=== PATIENT | female | born 1970 | race American Indian/Alaskan Native ===

== ENCOUNTER 2016-09-14 15:23 | Emergency (ER) | payer MEDICAID ==
[2016-09-14 18:25] LABS: Basophils % (Auto) 0.5 % (0.0-1.8); Eosinophils % (Auto) 1.2 % (0.0-4.3); Hematocrit 41.1 % (30.3-42.9); Hemoglobin 13.1 gm/dl (10.1-14.3); Mean Corpuscular HGB Conc 32 % (30-34); Mean Corpuscular Hemoglobin 26 pg (28-32); Mean Corpuscular Volume 81 fl (79-97); Platelet Count 298 K/mm3 (140-440); Red Blood Count 5.06 M/mm3 (3.65-5.03); Red Cell Distribution Width 15.4 % (13.2-15.2); White Blood Count 12.1 K/mm3 (4.5-11.0)
[2016-09-14 18:46] LABS: Alanine Aminotransferase 7 units/L (7-56); Albumin 3.5 g/dL (3.9-5); Albumin/Globulin Ratio 1.3 %; Alkaline Phosphatase 58 units/L (35-129); Anion Gap 17 mmol/L; Bilirubin,Total 0.3 mg/dL (0.1-1.2); Blood Urea Nitrogen 10 mg/dL (7-17); Calcium 8.4 mg/dL (8.4-10.2); Carbon Dioxide 27 mmol/L (22-30); Chloride 98.4 mmol/L (98-107); Creatine Kinase 37 units/L (30-135); Glucose 123 mg/dL (65-100); Potassium 4.2 mmol/L (3.6-5.0); Sodium 138 mmol/L (137-145); Total Protein 6.1 g/dL (6.3-8.2)
[2016-09-14 19:30] VITALS: BP 117/80
--- NOTE | 2016-09-14 19:30 | Emergency Department Report ---
Chief Complaint: Dizziness Stated Complaint: BLOOD PRESSURE Time Seen by Provider: 09/14/16 19:30 - HPI History of Present Illness: Patient here complaining of low blood pressure that started this afternoon, headache and feeling lightheaded. She is complaining of nausea without any vomiting. She said that she was unconscious and treated at [place] for similar incident a few weeks ago. Denies any fever or chills. She said her headache is 8 out of 10. Denies any neck pain or stiffness. Denies any abdominal or back pain. - ROS Review of Systems: All systems are negative unless stated in HPI above - Exam Vital Signs: Vital Signs 09/14/16 16:54 Temperature 97.5 F L Pulse Rate 62 Respiratory 18 Rate Blood Pressure 89/57 O2 Sat by Pulse 100 Oximetry Vital Signs 09/14/16 09/14/16 16:54 19:29 Temperature 97.5 F L Pulse Rate 62 Pulse Rate [ 70 Lying] Pulse Rate [ 65 Sitting] Pulse Rate [ 72 Standing] Respiratory 18 Rate Blood Pressure 89/57 Blood Pressure 117/80 [Lying] Blood Pressure 113/80 [Sitting] Blood Pressure 111/78 [Standing] O2 Sat by Pulse 100 Oximetry Physical Exam: General: This is a 46-year-old female well-nourished well-developed in no acute distress. Lungs: Clear to auscultate bilaterally, no rhonchi wheezes or rales. Normal work of breathing Cardiovascular: S1, S2. Regular rate and rhythm. Orthostatic vital signs stable. Abdomen: Nontender to palpate in all quadrants, Edinger rebound tenderness. Mini neurological: CSF 15, speech is clear and fluid. Normal gait. Patient is alert and oriented 3. MSE screening note: Focused history and physical exam performed. Due to findings the following was ordered:see [facility] ED Medical Decision Making - Lab Data Result diagrams: 09/14/16 17:50 09/14/16 17:50 - Medical Decision Making Medical decision making: Patient seen by provider in triage area. Appropriate protocol activated and patient to main ED to be seen by physician. ED Disposition for MSE Condition: Stable
[2016-09-14] MEDS ORDERED: NACL 0.9% 1000 ML 1,000 ML IV ONE (20:19)
[2016-09-14] MEDS ORDERED: MUCINEX ER PO ONE (20:29)
[2016-09-14] MEDS ORDERED: TYLENOL PO ONE (20:59)
--- NOTE | 2016-09-14 21:04 | Emergency Department Report ---
HPI - General Chief Complaint: Dizziness Time Seen by Provider: 09/14/16 19:30 - HPI HPI: The patient is a 46-year-old female who presents for evaluation of headache and dizziness. The patient reports dizziness since noon earlier today, 8 hours prior to my evaluation. She states that her dizziness/lightheadedness has been severe, exacerbated with standing and walking, improved with rest and lying down , and associated with a constant mild generalized aching in quality headache for the past one day. The patient denies fever, head injury, neck pain, neck stiffness, vision or hearing changes, smell or taste changes, paresthesias, facial drooping, slurred speech, seizure-like activity, urine or bowel incontinence or retention, or other focal neurological deficit. ED Past Medical Hx - Past Medical History Hx Hypertension: Yes Additional medical history: ovarian cyst. fibroids. enlarged uterus. abnormal EKG - Surgical History Hx Cholecystectomy: Yes - Social History Smoking Status: Never Smoker Substance Use Type: None - Medications Home Medications: Home Medications Medication Instructions Recorded Confirmed Last Taken Type Hydrochlorothiazide [HCTZ] 25 mg PO QDAY #90 tablet 05/30/16 Unknown Rx Atenolol [Tenormin] 50 mg PO DAILY 09/14/16 09/14/16 1 Day Ago History 50 Cetirizine HCl [ZyrTEC] 10 mg PO DAILY 09/14/16 09/14/16 1 Day Ago History 10 Lisinopril [Zestril TAB] 40 mg PO DAILY 09/14/16 09/14/16 1 Day Ago History 40 mg ED Review of Systems ROS: Stated complaint: BLOOD PRESSURE Other details as noted in HPI Constitutional: denies: fever; reports lightheadedness ENT: denies: throat or neck pain Respiratory: denies: cough, shortness of breath Cardiovascular: denies: chest pain Endocrine: denies unexplained weight loss or gain Gastrointestinal: denies: abdominal pain, nausea Genitourinary: denies: dysuria Musculoskeletal: denies: leg swelling Skin: denies: rash Neurological: reports headache Hematological/Lymphatic: denies: easy bleeding or easy bruising Psych: denies sadness or hopelessness Physical Exam - Physical Exam Vital Signs: Vital Signs 09/14/16 09/14/16 16:54 19:29 Temperature 97.5 F L Pulse Rate 62 Pulse Rate [ 70 Lying] Pulse Rate [ 65 Sitting] Pulse Rate [ 72 Standing] Respiratory 18 Rate Blood Pressure 89/57 Blood Pressure 117/80 [Lying] Blood Pressure 113/80 [Sitting] Blood Pressure 111/78 [Standing] O2 Sat by Pulse 100 Oximetry Physical Exam: General: well-nourished, well-developed, no acute distress Head: Normocephalic, atraumatic Eyes: normal sclera, EOMI, PERRLA male ENT: Mucous membranes are pale and dry Neck: No neck stiffness, no cervical adenopathy Respiratory: Breath sounds equal bilaterally, no wheezing, rales, or rhonchi Cardio: S1 and S2 present, no murmurs, rubs, gallops, capillary refill is delayed Abdomen: Normoactive bowel sounds, soft abdomen, no rigidity, no guarding or rebound tenderness Musc: No pitting edema Skin: No rash Neuro: Alert oriented 3, no facial drooping, normal speech, no pronator drift, no sensation or motor deficit in the arms or legs, reflexes 2+ and symmetric on DTR testing, no obvious gross neuro deficits Psych: Normal affect ED Course Vital Signs 09/14/16 09/14/16 16:54 19:29 Temperature 97.5 F L Pulse Rate 62 Pulse Rate [ 70 Lying] Pulse Rate [ 65 Sitting] Pulse Rate [ 72 Standing] Respiratory 18 Rate Blood Pressure 89/57 Blood Pressure 117/80 [Lying] Blood Pressure 113/80 [Sitting] Blood Pressure 111/78 [Standing] O2 Sat by Pulse 100 Oximetry ED Medical Decision Making - Lab Data Result diagrams: 09/14/16 17:50 09/14/16 17:50 - Medical Decision Making The patient was seen and examined by myself. The patient is placed on a marketing secretary and continuous pulse ox. On initial evaluation, the patient was found to be in no distress. Evaluation orders were placed. The patient is given 1 L normal saline fluid bolus for treatment of dehydration and hypotension , blood pressure 89/57. The patient is given a tablet of Tylenol for her headache. Lab results reveal elevated RBC, suggestive of hemoconcentration and exam findings of dehydration, and otherwise labs were grossly unremarkable including normal hemoglobin, glucose, electrolytes, renal function. The patient was reevaluated and reported that their symptoms were markedly improved, and her blood pressure is found to have normalized. The patient is stable for discharge with outpatient follow-up. The patient is given follow-up and return instructions. The patient expressed understanding and agreed with the plan. The patient is discharged in stable condition. Critical care attestation.: If time is entered above; I have spent that time in minutes in the direct care of this critically ill patient, excluding procedure time. ED Disposition Clinical Impression: Dehydration, Orthostatic lightheadedness Hypotension Qualifiers: Hypotension type: unspecified hypotension type Qualified Code(s): I95.9 - Hypotension, unspecified Acute nonintractable headache Qualifiers: Headache type: unspecified Qualified Code(s): R51 - Headache Disposition: DISCHARGED TO HOME OR SELFCARE Is pt being admited?: No Does the pt Need Aspirin: No Condition: Stable Instructions: Dehydration (ED), Lightheadedness (ED), Acute Headache (ED) Referrals: PRIMARY CARE, [Primary Care Provider] - 3-5 Days Time of Disposition: 21:02
== END 2016-09-14 23:16 | disposition home or self-care (01) ==
LOC: ED 15:23
DX: R51 Headache (principal); I95.9 Hypotension, unspecified; E86.0 Dehydration; E42 Marasmic kwashiorkor; I10 Essential (primary) hypertension; Z90.49 Acquired absence of other specified parts of digestive tract; Z88.6 Allergy status to analgesic agent; Z79.899 Other long term (current) drug therapy
CPT/HCPCS: 36415; 80053; 82550; 82553; 83880; 84439; 84443; 84484; 85025; 87040; 93005; 93010; 96360; 99284; J7030

== ENCOUNTER 2016-10-20 17:43 | Emergency (ER) | payer MEDICAID ==
--- NOTE | 2016-10-20 18:26 | Emergency Department Report ---
Chief Complaint: Abdominal Pain Stated Complaint: VAGINAL PAIN/SWEATS/BACK Time Seen by Provider: 10/20/16 18:21 - HPI History of Present Illness: pt c/o vaginal pain and itching and LUQ pain PT states she was recently dx with cervical cancer - ROS Review of Systems: - discharge - vomiting - Exam Physical Exam: pt looks well, non toxic no guarding of abd. abd obese gu exam not done in triage MSE screening note: Focused history and physical exam performed. Due to findings the following was ordered: labs ED Disposition for MSE Condition: Stable
[2016-10-20 18:28] VITALS: BP 114/76
[2016-10-20 19:21] LABS: Bilirubin,Urine NEG (Negative); Blood,Urine NEG (Negative); Ketones,Urine NEG (Negative); Leukocyte Esterase,Urine NEG (Negative); Mucus,Urine FEW /HPF; Nitrite,Urine NEG (Negative); Protein,Urine <15 mg/dL mg/dL (Negative); Urobilinogen,Urine < 2.0 mg/dL (<2.0); WBC,Urine < 1.0 /HPF (0.0-6.0)
--- NOTE | 2016-10-25 00:53 | ED Elopement Review ---
ED Pt Elopement review - Results review Lab results: Laboratory Tests 10/20/16 18:57 Urine Color Yellow Urine Turbidity Clear Urine pH 5.0 Ur Specific [place] 1.015 Urine Protein <15 mg/dl Urine Glucose (UA) Neg Urine Ketones Neg Urine Blood Neg Urine Nitrite Neg Ur Reducing Substances Not Reportable Urine Bilirubin Neg Urine Ictotest Not Reportable Urine Urobilinogen < 2.0 Ur Leukocyte Esterase Neg Urine WBC (Auto) < 1.0 Urine RBC (Auto) 1.0 U Epithel Cells (Auto) < 1.0 Urine Mucus Few Urine HCG, Qual Negative - Call Back decision Pt Call Back Decision: No action required
== END 2016-10-20 21:45 | disposition left against medical advice (07) ==
LOC: ED 17:43
DX: R10.2 Pelvic and perineal pain (principal); N89.8 Other specified noninflammatory disorders of vagina; R10.32 Left lower quadrant pain; Z53.21 Procedure and treatment not carried out due to patient leaving prior to being seen by health care provider
CPT/HCPCS: 81001; 81025

== ENCOUNTER 2016-11-25 16:47 | Emergency (ER) | payer SELFPAY ==
[2016-11-25 17:55] VITALS: BP 112/80
[2016-11-25 18:09] LABS: Basophils % (Auto) 1.1 % (0.0-1.8); Eosinophils % (Auto) 4.7 % (0.0-4.3); Hematocrit 44.2 % (30.3-42.9); Hemoglobin 13.9 gm/dl (10.1-14.3); Mean Corpuscular HGB Conc 32 % (30-34); Mean Corpuscular Volume 81 fl (79-97); Platelet Count 312 K/mm3 (140-440); Red Blood Count 5.46 M/mm3 (3.65-5.03); White Blood Count 11.5 K/mm3 (4.5-11.0)
[2016-11-25 18:10] LABS: Mean Corpuscular Hemoglobin 26 pg (28-32)
[2016-11-25 18:28] LABS: Alanine Aminotransferase 9 units/L (7-56); Albumin 3.1 g/dL (3.9-5); Albumin/Globulin Ratio 1.1 %; Alkaline Phosphatase 52 units/L (35-129); Anion Gap 12 mmol/L; BUN/Creatinine Ratio 11.11; Bilirubin,Total < 0.20 mg/dL (0.1-1.2); Blood Urea Nitrogen 10 mg/dL (7-17); Calcium 8.2 mg/dL (8.4-10.2); Carbon Dioxide 29 mmol/L (22-30); Chloride 99.6 mmol/L (98-107); Glucose 115 mg/dL (65-100); Lipase 47 units/L (13-60); Potassium 3.7 mmol/L (3.6-5.0); Sodium 137 mmol/L (137-145)
--- NOTE | 2016-11-26 19:30 | ED Elopement Review ---
ED Pt Elopement review - Results review Lab results: Laboratory Tests 11/25/16 11/25/16 17:58 17:58 WBC 11.5 H RBC 5.46 H Hgb 13.9 Hct 44.2 H MCV 81 MCH 26 L MCHC 32 RDW 16.0 H Plt Count 312 Lymph % (Auto) 32.2 [place] % (Auto) 7.9 H Eos % (Auto) 4.7 H Baso % (Auto) 1.1 Lymph # 3.7 Garrett # 0.9 H Eos # 0.5 H Baso # 0.1 Seg Neutrophils % 54.1 Seg Neutrophils # 6.2 Sodium 137 Potassium 3.7 Chloride 99.6 Carbon Dioxide 29 Anion Gap 12 BUN 10 Creatinine 0.9 Estimated GFR > 60 BUN/Creatinine Ratio 11.11 Glucose 115 H Calcium 8.2 L Total Bilirubin < 0.20 AST 11 ALT 9 Alkaline Phosphatase 52 Total Protein 6.0 L Albumin 3.1 L Albumin/Globulin Ratio 1.1 Lipase 47 - Call Back decision Pt Call Back Decision: No action required
== END 2016-11-25 20:42 | disposition left against medical advice (07) ==
LOC: ED 16:47
DX: R10.9 Unspecified abdominal pain (principal); R19.7 Diarrhea, unspecified; R11.0 Nausea; E03.9 Hypothyroidism, unspecified; Z88.5 Allergy status to narcotic agent; Z53.21 Procedure and treatment not carried out due to patient leaving prior to being seen by health care provider
CPT/HCPCS: 36415; 80053; 83690; 85025

== ENCOUNTER 2017-05-09 16:37 | Emergency (ER) | payer SELFPAY ==
[2017-05-09 17:59] VITALS: BP 156/92
[2017-05-09 18:40] LABS: Basophils % (Auto) 0.7 % (0.0-1.8); Hematocrit 37.4 % (30.3-42.9); Hemoglobin 11.7 gm/dl (10.1-14.3); Mean Corpuscular HGB Conc 31 % (30-34); Mean Corpuscular Volume 78 fl (79-97); Platelet Count 368 K/mm3 (140-440); Red Blood Count 4.77 M/mm3 (3.65-5.03); Red Cell Distribution Width 15.7 % (13.2-15.2); White Blood Count 9.8 K/mm3 (4.5-11.0)
[2017-05-09 18:46] LABS: Mean Corpuscular Hemoglobin 25 pg (28-32)
[2017-05-09 18:58] LABS: Anion Gap 14 mmol/L; BUN/Creatinine Ratio 17; Blood Urea Nitrogen 12 mg/dL (7-17); Calcium 9.3 mg/dL (8.4-10.2); Carbon Dioxide 30 mmol/L (22-30); Chloride 100.7 mmol/L (98-107); Glucose 96 mg/dL (65-100); Sodium 141 mmol/L (137-145)
--- NOTE | 2017-05-09 19:05 | Cat Scan Report ---
FINAL REPORT EXAM: CT HEAD/BRAIN WO CON HISTORY: fall TECHNIQUE: Noncontrast serial axial images from skull base to vertex PRIORS: CT scan of the head from 05/30/2016 FINDINGS: There is no mass effect or midline shift. There are no abnormal intra or extra-axial fluid collections. Cortical sulci and lateral ventricles are within normal limits for size and configuration. Basilar cisterns are patent. No acute intracranial hemorrhage is identified. Atherosclerotic calcifications are noted. Mastoid air cells are well aerated. There is mucosal thickening in the frontal sinus, ethmoidal air cells, sphenoid sinus and left maxillary sinus, as in the prior study. No acute osseous abnormality is identified. IMPRESSION: 1. No acute intracranial hemorrhage is identified. 2. Paranasal sinus disease is noted.
== END 2017-05-10 03:44 | disposition left against medical advice (07) ==
LOC: ED 16:37
DX: R51 Headache (principal); Z53.21 Procedure and treatment not carried out due to patient leaving prior to being seen by health care provider
CPT/HCPCS: 36415; 70450; 80048; 84484; 85025

== ENCOUNTER 2017-10-20 21:07 | Emergency (ER) | payer SELFPAY ==
[2017-10-20 21:55] LABS: Hematocrit 39.3 % (30.3-42.9); Hemoglobin 12.4 gm/dl (10.1-14.3); Mean Corpuscular HGB Conc 32 % (30-34); Mean Corpuscular Volume 79 fl (79-97); Red Blood Count 4.94 M/mm3 (3.65-5.03); Red Cell Distribution Width 17.1 % (13.2-15.2)
[2017-10-20 21:56] LABS: Mean Corpuscular Hemoglobin 25 pg (28-32); Platelet Count 292 K/mm3 (140-440)
[2017-10-20 22:05] LABS: Bacteria,Urine 1+ /HPF (Negative); Bilirubin,Urine NEG (Negative); Blood,Urine LG (Negative); Color,Urine Yellow (Yellow); Hyaline Casts,Urine 3 /LPF; Mucus,Urine 1+ /HPF; Urobilinogen,Urine < 2.0 mg/dL (<2.0)
[2017-10-20 22:15] LABS: RBC,Urine > 182.0 /HPF (0.0-6.0)
[2017-10-20 22:21] LABS: Basophils % (Manual) 0 % (0.0-1.8); Total Cells Counted 100
[2017-10-20 22:23] LABS: Anisocytosis 1+; Platelet Estimate Consistent w Auto; Poikilocytosis 1+
[2017-10-20 22:48] LABS: Albumin 3.8 g/dL (3.9-5); BUN/Creatinine Ratio 11; Blood Urea Nitrogen 8 mg/dL (7-17); Calcium 8.5 mg/dL (8.4-10.2); Hemolysis Index 166; Lipase 32 units/L (13-60)
[2017-10-20 22:50] LABS: Alanine Aminotransferase 9 units/L (7-56)
[2017-10-20 23:40] VITALS: BP 179/101
[2017-10-20] MEDS ORDERED: TORADOL IV ONE (23:43)
[2017-10-20] MEDS ORDERED: NACL 0.9% 1000 ML 1,000 ML IV ONE (23:43)
[2017-10-20] MEDS ORDERED: ZOFRAN IV ONE (23:43)
[2017-10-21] MEDS ORDERED: NACL ONE (00:51)
--- NOTE | 2017-10-21 02:06 | Cat Scan Report ---
FINAL REPORT PROCEDURE: CT ABDOMEN PELVIS W CON TECHNIQUE: Computerized axial tomography of the abdomen and pelvis was performed after the IV injection of iodinated nonionic contrast. HISTORY: LLQ pain, hx cerv CA excess bleeding COMPARISON: 10/25/2013 FINDINGS: Visualized lower thorax: No significant abnormality. Liver: Normal size and attenuation. Spleen: Normal size and attenuation. Gallbladder and biliary system: The gallbladder is absent. There is slight dilatation of the central biliary ductal system. Pancreas: Normal. Adrenals: Normal. Kidneys: Normal. GI tract: No obstruction. No ileus or enteritis. The cecum, appendix and colon are normal. Lymph nodes and mesentery: Normal. Vasculature: Normal. Bladder: Normal. Reproductive organs: There is a cyst on left ovary this measures approximately 2 centimeters.. Peritoneum: No free fluid. Musculoskeletal structures: No significant abnormality. Other: None. IMPRESSION: There is no evidence of intestinal or urinary tract obstruction. No ileus or enteritis. The appendix is normal. Previous cholecystectomy
--- NOTE | 2017-10-21 02:26 | Emergency Department Report ---
ED Abdominal Pain HPI - General Chief Complaint: Abdominal Pain Stated Complaint: ABD PAIN; VAG D/C WITH ODOR Time Seen by Provider: 10/20/17 23:28 Source: patient Mode of arrival: Ambulatory Limitations: No Limitations - History of Present Illness Initial Comments: Patient is a 47-year-old female who is presenting with lower abdominal pain as well as pain in the left lower quadrant. Patient states that she is on her menstrual cycle for the past several days. This is the second time she's had bleeding within the last month. Patient was diagnosed with cervical cancer in August 2016 was told to follow-up as she is not due to financial constraints. The patient has had continued chronic pelvic pain since this diagnosis was given however the pain is worse when she's bleeding. Patient also has some nausea as very mild diarrhea as well. Patient has some shooting pains that shoot into her rectum. Patient denies any fevers chills cough chest pain at this time. Severity scale (0 -10): 5 - Related Data Home Medications Medication Instructions Recorded Confirmed Last Taken Atenolol [Tenormin] 50 mg PO DAILY 09/14/16 09/14/16 1 Day Ago ~09/13/16 50 Cetirizine HCl [ZyrTEC] 10 mg PO DAILY 09/14/16 09/14/16 1 Day Ago ~09/13/16 10 Lisinopril [Zestril TAB] 40 mg PO DAILY 09/14/16 09/14/16 1 Day Ago ~09/13/16 40 mg Previous Rx's Medication Instructions Recorded Last Taken Type Hydrochlorothiazide [HCTZ] 25 mg PO QDAY #90 tablet 05/30/16 1 Day Ago Rx ~09/13/16 25 Ibuprofen [Motrin] 800 mg PO Q8HR PRN #20 tablet 10/21/17 Unknown Rx Ondansetron [Zofran Odt] 4 mg PO Q8HR PRN #10 tab.rapdis 10/21/17 Unknown Rx Allergies Allergy/AdvReac Type Severity Reaction Status Date / Time codeine Allergy Rash / Verified 10/20/16 18:22 VOMITING ED Review of Systems ROS: Stated complaint: ABD PAIN; VAG D/C WITH ODOR Other details as noted in HPI Comment: All other systems reviewed and negative ED Past Medical Hx - Past Medical History Hx Hypertension: Yes Additional medical history: ovarian cyst, hypothyroidism, cx Ca, chronic sinusitis. fibroids. enlarged uterus. abnormal EKG - Surgical History Hx Cholecystectomy: Yes - Social History Smoking Status: Never Smoker Substance Use Type: None - Medications Home Medications: Home Medications Medication Instructions Recorded Confirmed Last Taken Type Hydrochlorothiazide [HCTZ] 25 mg PO QDAY #90 tablet 05/30/16 09/14/16 1 Day Ago Rx ~09/13/16 25 Atenolol [Tenormin] 50 mg PO DAILY 09/14/16 09/14/16 1 Day Ago History ~09/13/16 50 Cetirizine HCl [ZyrTEC] 10 mg PO DAILY 09/14/16 09/14/16 1 Day Ago History ~09/13/16 10 Lisinopril [Zestril TAB] 40 mg PO DAILY 09/14/16 09/14/16 1 Day Ago History ~09/13/16 40 mg Ibuprofen [Motrin] 800 mg PO Q8HR PRN #20 tablet 10/21/17 Unknown Rx Ondansetron [Zofran Odt] 4 mg PO Q8HR PRN #10 tab.rapdis 10/21/17 Unknown Rx ED Physical Exam - General Limitations: No Limitations General appearance: alert, in no apparent distress - Head Head exam: Present: atraumatic, normocephalic - Eye Eye exam: Present: normal appearance - ENT ENT exam: Present: mucous membranes moist - Neck Neck exam: Present: normal inspection - Respiratory Respiratory exam: Present: normal lung sounds bilaterally. Absent: respiratory distress, wheezes, rales, rhonchi - Cardiovascular Cardiovascular Exam: Present: regular rate, normal rhythm. Absent: systolic murmur, diastolic murmur, rubs, gallop - GI/Abdominal GI/Abdominal exam: Present: soft, tenderness (mild tenderness in the left lower quadrant and suprapubic region), normal bowel sounds. Absent: distended, guarding, rebound, rigid - Extremities Exam Extremities exam: Present: normal inspection - Back Exam Back exam: Present: normal inspection - Neurological Exam Neurological exam: Present: alert, oriented X3 - Psychiatric Psychiatric exam: Present: normal affect, normal mood - Skin Skin exam: Present: warm, dry, intact, normal color. Absent: rash ED Course Vital Signs 10/20/17 10/20/17 10/20/17 21:12 23:11 23:15 Temperature 98.6 F Pulse Rate 102 H 88 83 Respiratory 18 19 19 Rate Blood Pressure 161/88 179/101 O2 Sat by Pulse 100 99 99 Oximetry 10/20/17 23:31 Temperature 98.2 F Pulse Rate 85 Respiratory 18 Rate Blood Pressure 179/101 O2 Sat by Pulse 100 Oximetry ED Medical Decision Making - Lab Data Result diagrams: 10/20/17 21:36 10/20/17 21:36 Lab Results 10/20/17 10/20/17 10/20/17 Range/Units 21:36 21:36 Unknown WBC 12.7 H (4.5-11.0) K/mm3 RBC 4.94 (3.65-5.03) M/mm3 Hgb 12.4 (10.1-14.3) gm/dl Hct 39.3 (30.3-42.9) % MCV 79 (79-97) fl MCH 25 L (28-32) pg MCHC 32 (30-34) % RDW 17.1 H (13.2-15.2) % Plt Count 292 (140-440) K/mm3 Lymph # Director Dermatology Add Manual Diff Complete Total Counted 100 Seg Neuts % (Manual) 51.0 (40.0-70.0) % Band Neutrophils % 0 % Lymphocytes % (Manual) 37.0 H (13.4-35.0) % Reactive Lymphs % (Man) 0 % Monocytes % (Manual) 6.0 (0.0-7.3) % Eosinophils % (Manual) 6.0 H (0.0-4.3) % Basophils % (Manual) 0 (0.0-1.8) % Metamyelocytes % 0 % Myelocytes % 0 % Promyelocytes % 0 % Blast Cells % 0 % Nucleated RBC % Not Reportable Seg Neutrophils # Man 6.5 (1.8-7.7) K/mm3 Band Neutrophils # 0.0 K/mm3 Lymphocytes # (Manual) 4.7 (1.2-5.4) K/mm3 Abs React Lymphs (Man) 0.0 K/mm3 Monocytes # (Manual) 0.8 (0.0-0.8) K/mm3 Eosinophils # (Manual) 0.8 H (0.0-0.4) K/mm3 Basophils # (Manual) 0.0 (0.0-0.1) K/mm3 Metamyelocytes # 0.0 K/mm3 Myelocytes # 0.0 K/mm3 Promyelocytes # 0.0 K/mm3 Blast Cells # 0.0 K/mm3 WBC Morphology Not Reportable Hypersegmented Neuts Not Reportable Hyposegmented Neuts Not Reportable Hypogranular Neuts Not Reportable Smudge Cells Not Reportable Toxic Granulation Not Reportable Toxic Vacuolation Not Reportable Dohle Bodies Not Reportable Pelger-Huet Anomaly Not Reportable Caden Rods Not Reportable Platelet Estimate Consistent w auto Clumped Platelets Not Reportable Plt Clumps, EDTA Not Reportable Large Platelets Not Reportable Giant Platelets Not Reportable Platelet Satelliting Not Reportable Plt Morphology Comment Not Reportable RBC Morphology Not Reportable Dimorphic RBCs Not Reportable Polychromasia Not Reportable Hypochromasia Not Reportable Poikilocytosis 1+ Anisocytosis 1+ Microcytosis Not Reportable Macrocytosis Not Reportable Spherocytes Not Reportable Pappenheimer Bodies Not Reportable Sickle Cells Not Reportable Target Cells Not Reportable Tear Drop Cells Not Reportable Ovalocytes Not Reportable Helmet Cells Not Reportable [place] Bodies Not Reportable [place] Rings Not Reportable [place] Cells Not Reportable Bite Cells Not Reportable Crenated Cell Not Reportable Elliptocytes Few Acanthocytes (Spur) Not Reportable Rouleaux Not Reportable Hemoglobin C Crystals Not Reportable Schistocytes Not Reportable Malaria parasites Not Reportable [place] Bodies Not Reportable Hem Pathologist Commnt No Sodium 134 L (137-145) mmol/L Potassium 4.5 (3.6-5.0) mmol/L Chloride 100.2 (98-107) mmol/L Carbon Dioxide 19 L (22-30) mmol/L Anion Gap 19 mmol/L BUN 8 (7-17) mg/dL Creatinine 0.7 (0.7-1.2) mg/dL Estimated GFR > 60 ml/min BUN/Creatinine Ratio 11 % Glucose 112 H (65-100) mg/dL Calcium 8.5 (8.4-10.2) mg/dL Total Bilirubin 0.20 (0.1-1.2) mg/dL AST 19 (5-40) units/L ALT 9 (7-56) units/L Alkaline Phosphatase 81 (35-129) units/L Total Protein 7.7 (6.3-8.2) g/dL Albumin 3.8 L (3.9-5) g/dL Albumin/Globulin Ratio 1.0 % Lipase 32 (13-60) units/L Urine Color Yellow (Yellow) Urine Turbidity Clear (Clear) Urine pH 5.0 (5.0-7.0) Ur Specific [place] 1.025 (1.003-1.030) Urine Protein 30 mg/dl (Negative) mg/dL Urine Glucose (UA) Neg (Negative) mg/dL Urine Ketones Neg (Negative) mg/dL Urine Blood Lg (Negative) Urine Nitrite Neg (Negative) Urine Bilirubin Neg (Negative) Urine Urobilinogen < 2.0 (<2.0) mg/dL Ur Leukocyte Esterase Neg (Negative) Urine WBC (Auto) 9.0 H (0.0-6.0) /HPF Urine RBC (Auto) > 182.0 (0.0-6.0) /HPF Urine Bacteria (Auto) 1+ (Negative) /HPF Hyaline Casts 3 /LPF Urine Mucus 1+ /HPF - Radiology Data Radiology results: report reviewed CT abdomen and pelvis shows no acute process - Medical Decision Making Patient is a 47-year-old asthmatic female who is presenting with lower abdominal pain and heavy vaginal bleeding. Patient had no obvious abnormality seen on CT. Patient will be referred to gynecology for further evaluation of her cervical cancer and abnormal vaginal bleeding. Patient will be given pain meds. Patient also most likely has a viral gastroenteritis and will be started on Z Contreras as well. Patient was medicat and is feeling improved. Her pain is better and patient feels she is fine to go home as well. Ed Critical care attestation.: If time is entered above; I have spent that time in minutes in the direct care of this critically ill patient, excluding procedure time. ED Disposition Clinical Impression: Dysmenorrhea, Viral gastroenteritis Disposition: DC-01 TO HOME OR SELFCARE Is pt being admited?: No Does the pt Need Aspirin: No Condition: Stable Instructions: Abdominal Pain (ED), Dysmenorrhea (ED) Referrals: ROSANNE WELLINGTON MD [Staff Physician] - 3-5 Days
== END 2017-10-21 02:38 | disposition home or self-care (01) ==
LOC: ED 21:07
DX: N94.6 Dysmenorrhea, unspecified (principal); A08.4 Viral intestinal infection, unspecified; I10 Essential (primary) hypertension; Z85.43 Personal history of malignant neoplasm of ovary; Z90.49 Acquired absence of other specified parts of digestive tract
CPT/HCPCS: 36415; 74177; 80053; 81001; 83690; 85007; 85025; 96361; 96374; 96375; 99284; J1885; J2405; J7030; Q9967

== ENCOUNTER 2017-11-16 21:46 | Emergency (ER) | payer SELFPAY ==
[2017-11-16] MEDS ORDERED: ASPIRIN PO ONE (22:09)
[2017-11-16 22:20] LABS: Basophils # (Auto) 0.1 K/mm3 (0.0-0.1); Eosinophils # (Auto) 0.5 K/mm3 (0.0-0.4); Eosinophils % (Auto) 4.6 % (0.0-4.3); Monocytes % (Auto) 8.6 % (0.0-7.3)
[2017-11-16 22:23] LABS: Hematocrit 38.2 % (30.3-42.9); Hemoglobin 12.1 gm/dl (10.1-14.3); Mean Corpuscular HGB Conc 32 % (30-34); Mean Corpuscular Hemoglobin 25 pg (28-32); Mean Corpuscular Volume 80 fl (79-97); Platelet Count 336 K/mm3 (140-440); Red Cell Distribution Width 16.6 % (13.2-15.2)
[2017-11-16 22:24] LABS: Basophils % (Auto) 0.6 % (0.0-1.8); Lymphocytes # (Auto) 4.3 K/mm3 (1.2-5.4); Lymphocytes % (Auto) 37.5 % (13.4-35.0); Mean Platelet Volume 7.8 fl (6-12)
[2017-11-16 22:31] LABS: BUN/Creatinine Ratio 14; Blood Urea Nitrogen 10 mg/dL (7-17); Calcium 8.4 mg/dL (8.4-10.2); Hemolysis Index 0
[2017-11-16 23:00] LABS: Amorphous Crystals,Urine 1+; Bilirubin,Urine NEG (Negative); Blood,Urine LG (Negative); Color,Urine Yellow (Yellow); Mucus,Urine FEW /HPF; Protein,Urine <15 mg/dL mg/dL (Negative); RBC,Urine > 182.0 /HPF (0.0-6.0); Urobilinogen,Urine < 2.0 mg/dL (<2.0)
[2017-11-16 23:01] LABS: WBC,Urine < 1.0 /HPF (0.0-6.0)
[2017-11-17] MEDS ORDERED: ZOFRAN ODT PO ONE (00:12)
[2017-11-17] MEDS ORDERED: MOTRIN PO ONE (00:12)
[2017-11-17] MEDS ORDERED: PERCOCET 5/325 PO ONE (00:12)
--- NOTE | 2017-11-17 00:31 | Emergency Department Report ---
ED General Adult HPI - General Chief complaint: Chest Pain Stated complaint: HEADACHE, CHEST PAIN Time Seen by Provider: 11/16/17 23:56 Source: patient Mode of arrival: Ambulatory Limitations: No Limitations - History of Present Illness Initial comments: Ms. Noble is a 47-year-old female with history of hypertension and uterine fibroids. She has had 3 days of frontal throbbing headache. She has had several previous ED visits for headache. She's also had 3 days of central achy Pain in the chest. Moderately severe. [id number] pain medication did not improve the pain. She denies shortness of breath. She denies numbness. Denies tingling. She denies blurry vision. No previous history of heart disease. Father did have a history of heart attack in his 60s. Her [facility] physician attempted to refer her for further testing. However no immediate appointments were available. She is unclear whether she has history of leg clot or lung clot. Severity scale (0 -10): 0 - Related Data Home Medications Medication Instructions Recorded Confirmed Last Taken Atenolol [Tenormin] 50 mg PO DAILY 09/14/16 09/14/16 1 Day Ago ~09/13/16 50 Cetirizine HCl [ZyrTEC] 10 mg PO DAILY 09/14/16 09/14/16 1 Day Ago ~09/13/16 10 Lisinopril [Zestril TAB] 40 mg PO DAILY 09/14/16 09/14/16 1 Day Ago ~09/13/16 40 mg Previous Rx's Medication Instructions Recorded Last Taken Type Hydrochlorothiazide [HCTZ] 25 mg PO QDAY #90 tablet 05/30/16 1 Day Ago Rx ~09/13/16 25 Ibuprofen [Motrin] 800 mg PO Q8HR PRN #20 tablet 10/21/17 Unknown Rx Ondansetron [Zofran Odt] 4 mg PO Q8HR PRN #10 tab.rapdis 10/21/17 Unknown Rx HYDROcodone/APAP 5-325 [[place] 1 each PO Q4HR PRN #10 tablet 11/17/17 Unknown Rx 5/325] Allergies Allergy/AdvReac Type Severity Reaction Status Date / Time codeine Allergy Rash / Verified 10/20/16 18:22 VOMITING ED Review of Systems ROS: Stated complaint: HEADACHE, CHEST PAIN Other details as noted in HPI Comment: All other systems reviewed and negative Constitutional: denies: fever, malaise Respiratory: denies: cough Cardiovascular: chest pain ED Past Medical Hx - Past Medical History Previous Medical History?: Yes Hx Hypertension: Yes Additional medical history: ovarian cyst, hypothyroidism, cx Ca, chronic sinusitis. fibroids. enlarged uterus. abnormal EKG - Surgical History Past Surgical History?: Yes Hx Cholecystectomy: Yes - Social History Smoking Status: Never Smoker Substance Use Type: None - Medications Home Medications: Home Medications Medication Instructions Recorded Confirmed Last Taken Type Hydrochlorothiazide [HCTZ] 25 mg PO QDAY #90 tablet 05/30/16 09/14/16 1 Day Ago Rx ~09/13/16 25 Atenolol [Tenormin] 50 mg PO DAILY 09/14/16 09/14/16 1 Day Ago History ~09/13/16 50 Cetirizine HCl [ZyrTEC] 10 mg PO DAILY 09/14/16 09/14/16 1 Day Ago History ~09/13/16 10 Lisinopril [Zestril TAB] 40 mg PO DAILY 09/14/16 09/14/16 1 Day Ago History ~09/13/16 40 mg Ibuprofen [Motrin] 800 mg PO Q8HR PRN #20 tablet 10/21/17 Unknown Rx Ondansetron [Zofran Odt] 4 mg PO Q8HR PRN #10 tab.rapdis 10/21/17 Unknown Rx HYDROcodone/APAP 5-325 [[place] 1 each PO Q4HR PRN #10 tablet 11/17/17 Unknown Rx 5/325] ED Physical Exam - General Limitations: No Limitations General appearance: alert, in no apparent distress - Head Head exam: Present: atraumatic, normocephalic - Eye Eye exam: Present: normal appearance - ENT ENT exam: Present: mucous membranes moist - Neck Neck exam: Present: normal inspection - Respiratory Respiratory exam: Present: normal lung sounds bilaterally. Absent: respiratory distress, wheezes, rales, rhonchi - Cardiovascular Cardiovascular Exam: Present: regular rate, normal rhythm. Absent: systolic murmur, diastolic murmur, rubs, gallop - GI/Abdominal GI/Abdominal exam: Present: soft, normal bowel sounds - Extremities Exam Extremities exam: Present: normal inspection - Back Exam Back exam: Present: normal inspection - Neurological Exam Neurological exam: Present: alert, oriented X3, CN II-XII intact, normal gait - Psychiatric Psychiatric exam: Present: normal affect, normal mood - Skin Skin exam: Present: warm, dry, intact, normal color. Absent: rash ED Course Vital Signs 11/16/17 11/17/17 11/17/17 22:03 00:10 00:11 Temperature 98.3 F 98.9 F Pulse Rate 101 H 85 Respiratory 16 18 Rate Blood Pressure 171/102 Blood Pressure 159/96 [Right] O2 Sat by Pulse 100 100 100 Oximetry 11/17/17 00:24 Temperature Pulse Rate Respiratory 18 Rate Blood Pressure Blood Pressure [Right] O2 Sat by Pulse Oximetry ED Medical Decision Making - Lab Data Result diagrams: 11/16/17 22:12 11/16/17 22:12 Laboratory Results - last 24 hr 11/16/17 11/16/17 11/16/17 22:12 22:12 22:12 WBC 11.4 H RBC 4.80 Hgb 12.1 Hct 38.2 MCV 80 MCH 25 L MCHC 32 RDW 16.6 H Plt Count 336 Lymph % (Auto) 37.5 H [place] % (Auto) 8.6 H Eos % (Auto) 4.6 H Baso % (Auto) 0.6 Lymph # 4.3 [place] # 1.0 H Eos # 0.5 H Baso # 0.1 Seg Neutrophils % 48.7 Seg Neutrophils # 5.5 Sodium 135 L Potassium 3.7 Chloride 97.5 L Carbon Dioxide 26 Anion Gap 15 BUN 10 Creatinine 0.7 Estimated GFR > 60 BUN/Creatinine Ratio 14 Glucose 113 H Calcium 8.4 Troponin T < 0.010 HCG, Qual Negative Urine Color Urine Turbidity Urine pH Ur Specific [place] Urine Protein Urine Glucose (UA) Urine Ketones Urine Blood Urine Nitrite Urine Bilirubin Urine Urobilinogen Ur Leukocyte Esterase Urine WBC (Auto) Urine RBC (Auto) U Epithel Cells (Auto) Amorphous Crystals Urine Mucus 11/16/17 22:25 WBC RBC Hgb Hct MCV MCH MCHC RDW Plt Count Lymph % (Auto) [place] % (Auto) Eos % (Auto) Baso % (Auto) Lymph # [place] # Eos # Baso # Seg Neutrophils % Seg Neutrophils # Sodium Potassium Chloride Carbon Dioxide Anion Gap BUN Creatinine Estimated GFR BUN/Creatinine Ratio Glucose Calcium Troponin T HCG, Qual Urine Color Yellow Urine Turbidity Turbid Urine pH 7.0 Ur Specific [place] 1.017 Urine Protein <15 mg/dl Urine Glucose (UA) Neg Urine Ketones Neg Urine Blood Lg Urine Nitrite Neg Urine Bilirubin Neg Urine Urobilinogen < 2.0 Ur Leukocyte Esterase Neg Urine WBC (Auto) < 1.0 Urine RBC (Auto) > 182.0 U Epithel Cells (Auto) < 1.0 Amorphous Crystals 1+ Urine Mucus Few Vital Signs - 24 hr 11/16/17 11/17/17 11/17/17 22:03 00:10 00:11 Temperature 98.3 F 98.9 F Pulse Rate 101 H 85 Respiratory 16 18 Rate Blood Pressure 171/102 Blood Pressure 159/96 [Right] O2 Sat by Pulse 100 100 100 Oximetry Laboratory Results - last 24 hr 11/16/17 11/16/17 11/16/17 22:12 22:12 22:12 WBC 11.4 H RBC 4.80 Hgb 12.1 Hct 38.2 MCV 80 MCH 25 L MCHC 32 RDW 16.6 H Plt Count 336 Lymph % (Auto) 37.5 H [place] % (Auto) 8.6 H Eos % (Auto) 4.6 H Baso % (Auto) 0.6 Lymph # 4.3 [place] # 1.0 H Eos # 0.5 H Baso # 0.1 Seg Neutrophils % 48.7 Seg Neutrophils # 5.5 D-Dimer Sodium 135 L Potassium 3.7 Chloride 97.5 L Carbon Dioxide 26 Anion Gap 15 BUN 10 Creatinine 0.7 Estimated GFR > 60 BUN/Creatinine Ratio 14 Glucose 113 H Calcium 8.4 Troponin T < 0.010 HCG, Qual Negative Urine Color Urine Turbidity Urine pH Ur Specific [place] Urine Protein Urine Glucose (UA) Urine Ketones Urine Blood Urine Nitrite Urine Bilirubin Urine Urobilinogen Ur Leukocyte Esterase Urine WBC (Auto) Urine RBC (Auto) U Epithel Cells (Auto) Amorphous Crystals Urine Mucus 11/16/17 11/17/17 11/17/17 22:25 00:21 00:21 WBC RBC Hgb Hct MCV MCH MCHC RDW Plt Count Lymph % (Auto) [place] % (Auto) Eos % (Auto) Baso % (Auto) Lymph # [place] # Eos # Baso # Seg Neutrophils % Seg Neutrophils # D-Dimer 253.64 H Sodium Potassium Chloride Carbon Dioxide Anion Gap BUN Creatinine Estimated GFR BUN/Creatinine Ratio Glucose Calcium Troponin T < 0.010 HCG, Qual Urine Color Yellow Urine Turbidity Turbid Urine pH 7.0 Ur Specific [place] 1.017 Urine Protein <15 mg/dl Urine Glucose (UA) Neg Urine Ketones Neg Urine Blood Lg Urine Nitrite Neg Urine Bilirubin Neg Urine Urobilinogen < 2.0 Ur Leukocyte Esterase Neg Urine WBC (Auto) < 1.0 Urine RBC (Auto) > 182.0 U Epithel Cells (Auto) < 1.0 Amorphous Crystals 1+ Urine Mucus Few - EKG Data 11/17/17 00:15 EKG obtained 59 Normal sinus rhythm rate of 95 beats a minute normal axis normal intervals no ST -T signs of ischemia positive LVH no signs of pericarditis - Medical Decision Making Ms. Noble presents with headache and chest pain. chest pain atypical for acs. Chest pain does not appear to be related to PNA or PE with equivocal level of d-dimer Dx: tension headache, chest pain rx: norco Critical care attestation.: If time is entered above; I have spent that time in minutes in the direct care of this critically ill patient, excluding procedure time. ED Disposition Clinical Impression: Chest pain, Tension headache Disposition: - TO HOME OR SELFCARE Is pt being admited?: No Does the pt Need Aspirin: No Condition: Stable Instructions: Chest Pain (ED), Tension Headache (ED) Prescriptions: HYDROcodone/APAP 5-325 [[place] 5/325] 1 each PO Q4HR PRN #10 tablet PRN Reason: Pain Referrals: PRIMARY CARE, [Primary Care Provider] - 3-5 Days Time of Disposition: 01:52
[2017-11-17 02:02] VITALS: BP 156/87
== END 2017-11-17 02:03 | disposition home or self-care (01) ==
LOC: ED 21:46
DX: G44.209 Tension-type headache, unspecified, not intractable (principal); R07.9 Chest pain, unspecified; I10 Essential (primary) hypertension; Z90.49 Acquired absence of other specified parts of digestive tract; Z88.6 Allergy status to analgesic agent
CPT/HCPCS: 36415; 80048; 81001; 84484; 84703; 85025; 85379; 93005; 93010; 99284

== ENCOUNTER 2017-11-26 15:24 | Emergency (ER) | payer SELFPAY ==
[2017-11-26 15:33] VITALS: BP 133/80
--- NOTE | 2017-11-26 17:27 | Emergency Department Report ---
Chief Complaint: Chest Pain Stated Complaint: CHEST/ABDOMINAL PAIN Time Seen by Provider: 11/26/17 17:22 - HPI History of Present Illness: 47-year-old female presents to the emergency department with complaint of midsternal chest and upper abdominal pain that started earlier today. She had some shortness of breath earlier. She has a past medical history of hypothyroidism, CHF, cervical cancer. She says that she was recently diagnosed with CHF through [facility] where "they have my records. " She has not taken anything for her symptoms prior to presentation. - ROS Review of Systems: Positive for chest pain, abdominal pain, sweats, intermittent shortness of breath Negative for diarrhea, constipation, vaginal bleeding or discharge, dysuria, fever - Exam Vital Signs: Vital Signs 11/26/17 15:29 Temperature 98.4 F Pulse Rate 106 H Respiratory 16 Rate Blood Pressure 133/80 O2 Sat by Pulse 95 Oximetry Physical Exam: Patient appears uncomfortable. Heart and lungs sounds are normal to auscultation. Normal bowel sounds. She is awake and alert. MSE screening note: Focused history and physical exam performed. Due to findings the following was ordered: I have ordered a CBC, CMP, troponins. The patient needs to be seen on the main emergency Department side. ED Disposition for MSE Condition: Stable Referrals: PRIMARY CARE, [Primary Care Provider] - 3-5 Days
[2017-11-26 17:47] LABS: Basophils # (Auto) 0.1 K/mm3 (0.0-0.1); Basophils % (Auto) 1.4 % (0.0-1.8); Eosinophils # (Auto) 0.5 K/mm3 (0.0-0.4); Eosinophils % (Auto) 5.6 % (0.0-4.3); Hematocrit 40.4 % (30.3-42.9); Hemoglobin 12.7 gm/dl (10.1-14.3); Lymphocytes % (Auto) 32.5 % (13.4-35.0); Mean Corpuscular HGB Conc 31 % (30-34); Mean Corpuscular Volume 81 fl (79-97); Monocytes # (Auto) 0.8 K/mm3 (0.0-0.8); Monocytes % (Auto) 8.8 % (0.0-7.3); Platelet Count 340 K/mm3 (140-440); Red Blood Count 5.02 M/mm3 (3.65-5.03)
[2017-11-26 17:55] LABS: Mean Corpuscular Hemoglobin 25 pg (28-32)
[2017-11-26 18:21] LABS: Alanine Aminotransferase 10 units/L (7-56); Albumin 4.1 g/dL (3.9-5); BUN/Creatinine Ratio 11; Blood Urea Nitrogen 8 mg/dL (7-17); Calcium 9.1 mg/dL (8.4-10.2); Hemolysis Index 5
== END 2017-11-26 20:23 | disposition left against medical advice (07) ==
LOC: ED 15:24
DX: R07.89 Other chest pain (principal); Z53.21 Procedure and treatment not carried out due to patient leaving prior to being seen by health care provider
CPT/HCPCS: 36415; 80053; 84484; 85025; 93005; 93010

== ENCOUNTER 2017-12-22 23:38 | Emergency (ER) | payer SELFPAY ==
[2017-12-23 00:10] VITALS: BP 168/102
[2017-12-23] MEDS ORDERED: ASPIRIN PO ONE (00:14)
[2017-12-23 01:01] LABS: Basophils # (Auto) 0.1 K/mm3 (0.0-0.1); Basophils % (Auto) 1.2 % (0.0-1.8); Eosinophils # (Auto) 0.4 K/mm3 (0.0-0.4); Eosinophils % (Auto) 4.9 % (0.0-4.3); Hematocrit 35.8 % (30.3-42.9); Hemoglobin 11.6 gm/dl (10.1-14.3); Lymphocytes # (Auto) 3.7 K/mm3 (1.2-5.4); Lymphocytes % (Auto) 41.8 % (13.4-35.0); Mean Corpuscular HGB Conc 32 % (30-34); Mean Corpuscular Volume 80 fl (79-97); Monocytes # (Auto) 0.7 K/mm3 (0.0-0.8); Monocytes % (Auto) 7.9 % (0.0-7.3); Platelet Count 318 K/mm3 (140-440); Red Cell Distribution Width 16.8 % (13.2-15.2)
[2017-12-23 01:05] LABS: Mean Corpuscular Hemoglobin 26 pg (28-32)
[2017-12-23 01:13] LABS: BUN/Creatinine Ratio 13; Blood Urea Nitrogen 10 mg/dL (7-17); Calcium 8.8 mg/dL (8.4-10.2); Hemolysis Index 1
== END 2017-12-23 01:23 | disposition left against medical advice (07) ==
LOC: ED 23:38
DX: M79.642 Pain in left hand (principal); M79.641 Pain in right hand; R51 Headache; Z53.21 Procedure and treatment not carried out due to patient leaving prior to being seen by health care provider
CPT/HCPCS: 36415; 80048; 84484; 84703; 85025; 93005; 93010

== ENCOUNTER 2018-01-31 20:50 | Emergency (ER) | payer MEDICAID ==
[2018-01-31 21:40] LABS: Basophils # (Auto) 0.1 K/mm3 (0.0-0.1); Basophils % (Auto) 0.9 % (0.0-1.8); Eosinophils # (Auto) 0.3 K/mm3 (0.0-0.4); Eosinophils % (Auto) 3.1 % (0.0-4.3); Hematocrit 37.5 % (30.3-42.9); Hemoglobin 13.2 gm/dl (10.1-14.3); Lymphocytes # (Auto) 3.4 K/mm3 (1.2-5.4); Lymphocytes % (Auto) 32.5 % (13.4-35.0); Mean Corpuscular HGB Conc 35 % (30-34); Mean Corpuscular Hemoglobin 28 pg (28-32); Mean Corpuscular Volume 79 fl (79-97); Monocytes % (Auto) 9.8 % (0.0-7.3); Platelet Count 349 K/mm3 (140-440); Red Blood Count 4.77 M/mm3 (3.65-5.03)
[2018-01-31 21:46] LABS: BUN/Creatinine Ratio 13; Blood Urea Nitrogen 13 mg/dL (7-17); Calcium 9.8 mg/dL (8.4-10.2); Hemolysis Index 7
[2018-01-31 22:25] LABS: Bacteria,Urine 1+ /HPF (Negative); Bilirubin,Urine NEG (Negative); Blood,Urine LG (Negative); Color,Urine Yellow (Yellow); Hyaline Casts,Urine 1 /LPF; Mucus,Urine FEW /HPF; Protein,Urine <15 mg/dL mg/dL (Negative)
--- NOTE | 2018-02-01 00:42 | Emergency Department Report ---
ED Abdominal Pain HPI - General Chief Complaint: Abdominal Pain Stated Complaint: ABD PAIN; N/V/D Time Seen by Provider: 01/31/18 23:07 Source: patient Mode of arrival: Ambulatory Limitations: No Limitations - History of Present Illness Initial Comments: Ms. Zamora is a 47-year-old female presents with epigastric pain and abdominal pain. She had a recent LEEP procedure on January 17 2 weeks ago at [facility]. She is having worsening vaginal bleeding. She also has had history of bloody diarrhea stools. She is referred for colonoscopy. MD Complaint: abdominal pain -: Gradual, days(s) (several days) Location: epigastric Radiation: none Severity: mild, moderate Severity scale (0 -10): 8 Quality: cramping Consistency: constant - Related Data Home Medications Medication Instructions Recorded Confirmed Last Taken Atenolol [Tenormin] 50 mg PO DAILY 09/14/16 09/14/16 1 Day Ago ~09/13/16 50 Cetirizine HCl [ZyrTEC] 10 mg PO DAILY 09/14/16 09/14/16 1 Day Ago ~09/13/16 10 Lisinopril [Zestril TAB] 40 mg PO DAILY 09/14/16 09/14/16 1 Day Ago ~09/13/16 40 mg Previous Rx's Medication Instructions Recorded Last Taken Type Hydrochlorothiazide [HCTZ] 25 mg PO QDAY #90 tablet 05/30/16 1 Day Ago Rx ~09/13/16 25 Ibuprofen [Motrin] 800 mg PO Q8HR PRN #20 tablet 10/21/17 Unknown Rx Ondansetron [Zofran Odt] 4 mg PO Q8HR PRN #10 tab.rapdis 10/21/17 Unknown Rx HYDROcodone/APAP 5-325 [[place] 1 each PO Q4HR PRN #10 tablet 11/17/17 Unknown Rx 5/325] Allergies Allergy/AdvReac Type Severity Reaction Status Date / Time codeine Allergy Rash / Verified 10/20/16 18:22 VOMITING ED Review of Systems ROS: Stated complaint: ABD PAIN; N/V/D Other details as noted in HPI Comment: All other systems reviewed and negative Constitutional: denies: fever, malaise Cardiovascular: chest pain Gastrointestinal: abdominal pain, diarrhea ED Past Medical Hx - Past Medical History Hx Hypertension: Yes Additional medical history: ovarian cyst, hypothyroidism, cx Ca, chronic sinusitis. fibroids. enlarged uterus. abnormal EKG - Surgical History Past Surgical History?: Yes Hx Cholecystectomy: Yes Additional Surgical History: leep at 01/17/2018 - Social History Smoking Status: Never Smoker Substance Use Type: None - Medications Home Medications: Home Medications Medication Instructions Recorded Confirmed Last Taken Type Hydrochlorothiazide [HCTZ] 25 mg PO QDAY #90 tablet 05/30/16 09/14/16 1 Day Ago Rx ~09/13/16 25 Atenolol [Tenormin] 50 mg PO DAILY 09/14/16 09/14/16 1 Day Ago History ~09/13/16 50 Cetirizine HCl [ZyrTEC] 10 mg PO DAILY 09/14/16 09/14/16 1 Day Ago History ~09/13/16 10 Lisinopril [Zestril TAB] 40 mg PO DAILY 09/14/16 09/14/16 1 Day Ago History ~09/13/16 40 mg Ibuprofen [Motrin] 800 mg PO Q8HR PRN #20 tablet 10/21/17 Unknown Rx Ondansetron [Zofran Odt] 4 mg PO Q8HR PRN #10 tab.rapdis 10/21/17 Unknown Rx HYDROcodone/APAP 5-325 [[place] 1 each PO Q4HR PRN #10 tablet 11/17/17 Unknown Rx 5/325] ED Physical Exam - General Limitations: No Limitations General appearance: alert, in no apparent distress - Head Head exam: Present: atraumatic, normocephalic - Eye Eye exam: Present: normal appearance - ENT ENT exam: Present: mucous membranes moist - Neck Neck exam: Present: normal inspection. Absent: tenderness, meningismus - Respiratory Respiratory exam: Present: normal lung sounds bilaterally. Absent: respiratory distress, wheezes, rales, rhonchi - Cardiovascular Cardiovascular Exam: Present: regular rate, normal rhythm, normal heart sounds. Absent: bradycardia, tachycardia, systolic murmur, diastolic murmur, rubs, gallop - GI/Abdominal GI/Abdominal exam: Present: soft, normal bowel sounds. Absent: distended, tenderness, guarding, rebound - Extremities Exam Extremities exam: Present: normal inspection - Back Exam Back exam: Present: normal inspection - Neurological Exam Neurological exam: Present: alert, oriented X3 - Psychiatric Psychiatric exam: Present: normal affect, normal mood - Skin Skin exam: Present: warm, dry, intact, normal color. Absent: rash ED Course Vital Signs 01/31/18 01/31/18 21:13 23:28 Temperature 98.2 F 97.4 F L Pulse Rate 111 H 100 H Respiratory 16 16 Rate Blood Pressure 127/87 Blood Pressure 139/93 [Left] O2 Sat by Pulse 100 100 Oximetry ED Medical Decision Making - Lab Data Result diagrams: 01/31/18 21:21 01/31/18 21:21 Laboratory Results - last 24 hr 01/31/18 01/31/18 01/31/18 21:21 21:21 21:54 WBC 10.4 RBC 4.77 Hgb 13.2 Hct 37.5 MCV 79 MCH 28 MCHC 35 H RDW 17.0 H Plt Count 349 Lymph % (Auto) 32.5 [place] % (Auto) 9.8 H Eos % (Auto) 3.1 Baso % (Auto) 0.9 Lymph # 3.4 [place] # 1.0 H Eos # 0.3 Baso # 0.1 Seg Neutrophils % 53.7 Seg Neutrophils # 5.6 Sodium 137 Potassium 3.5 L Chloride 97.3 L Carbon Dioxide 24 Anion Gap 19 BUN 13 Creatinine 1.0 Estimated GFR > 60 BUN/Creatinine Ratio 13 Glucose 142 H Calcium 9.8 Urine Color Yellow Urine Turbidity Clear Urine pH 5.0 Ur Specific [place] 1.024 Urine Protein <15 mg/dl Urine Glucose (UA) Neg Urine Ketones Tr Urine Blood Lg Urine Nitrite Neg Urine Bilirubin Neg Urine Urobilinogen 4.0 Ur Leukocyte Esterase Mod Urine WBC (Auto) 4.0 Urine RBC (Auto) 35.0 U Epithel Cells (Auto) 1.0 Urine Bacteria (Auto) 1+ Hyaline Casts 1 Urine Mucus Few Vital Signs - 24 hr 01/31/18 01/31/18 21:13 23:28 Temperature 98.2 F 97.4 F L Pulse Rate 111 H 100 H Respiratory 16 16 Rate Blood Pressure 127/87 Blood Pressure 139/93 [Left] O2 Sat by Pulse 100 100 Oximetry - Medical Decision Making Upon extensive discussion with Ms. Noble, she is quite frightened regarding her cancer diagnosis. She was told that she has "pre-cancer". However, she is quite hesitant to follow up to learn her prognosis. I have given her reassurance. I encouraged her to have the colonoscopy. No indication of significant hemorrhage with normal Hgb/HCT. No indication of GI bleed. Dc'd home. I reviewed electronic record. She had a abdominal pelvis CT on October 20 without indication of acute process. She has a history of cholecystectomy. Also she had a normal myocardial perfusion scan negative for ardiac ischemia. Normal ejection fraction. This study was obtained September 2015 Critical care attestation.: If time is entered above; I have spent that time in minutes in the direct care of this critically ill patient, excluding procedure time. ED Disposition Clinical Impression: Abdominal pain, Vaginal bleeding Disposition: DC-01 TO HOME OR SELFCARE Is pt being admited?: No Does the pt Need Aspirin: No Condition: Stable Instructions: Abdominal Pain (ED), Dysfunctional Uterine Bleeding (ED) Additional Instructions: Please follow up with your doctors. Please obtain the colonoscopy which was recommended by your physician. Time of Disposition: 00:45
[2018-02-01 01:08] VITALS: BP 127/94
== END 2018-02-01 01:07 | disposition home or self-care (01) ==
LOC: ED 20:50
DX: R10.13 Epigastric pain (principal); N93.9 Abnormal uterine and vaginal bleeding, unspecified; I10 Essential (primary) hypertension; E03.9 Hypothyroidism, unspecified; Z90.49 Acquired absence of other specified parts of digestive tract; Z88.6 Allergy status to analgesic agent
CPT/HCPCS: 36415; 80048; 81001; 85025; 87086; 99283

== ENCOUNTER 2018-02-23 17:46 | Emergency (ER) | payer MEDICAID ==
[2018-02-23 18:01] VITALS: BP 161/92
[2018-02-23 18:58] LABS: Bilirubin,Urine NEG (Negative); Blood,Urine LG (Negative); Color,Urine Yellow (Yellow); HCG Qualitative,Urine Negative (Negative); Mucus,Urine 2+ /HPF; Protein,Urine <15 mg/dL mg/dL (Negative); Urobilinogen,Urine < 2.0 mg/dL (<2.0)
== END 2018-02-23 18:00 | disposition left against medical advice (07) ==
LOC: ED 17:46
DX: M54.89 Other dorsalgia (principal); R51 Headache; Z53.21 Procedure and treatment not carried out due to patient leaving prior to being seen by health care provider
CPT/HCPCS: 81001; 81025

== ENCOUNTER 2018-03-13 22:06 | Emergency (ER) | payer MEDICAID ==
[2018-03-13] MEDS ORDERED: MOTRIN PO ONE (22:50)
--- NOTE | 2018-03-14 00:16 | XRay Report ---
FINAL REPORT PROCEDURE: XR SCAPULA LT TECHNIQUE: LEFT scapula radiographs, including AP and transthoracic views. HISTORY: Left scapula pain COMPARISON: No prior studies are available for comparison. FINDINGS: Fracture(s): None. Soft tissues: Normal. Bone mineralization: Normal. Foreign bodies: None. IMPRESSION: Negative examination
--- NOTE | 2018-03-14 00:18 | XRay Report ---
FINAL REPORT PROCEDURE: Three view cervical spine series TECHNIQUE: Cervical spine radiographs, AP, lateral, and open-mouth odontoid views. CPT 89527 HISTORY: NECK PAIN COMPARISON: No prior studies are available for comparison. FINDINGS: No fracture or subluxation is seen. The prevertebral soft tissues appear normal. Mild disc space narrowing visualized at C6-C7 level with anterior posterior osteophytic spurring consistent with degenerative disc disease. Disc spaces otherwise well maintained. Bone density appears normal. Posterior elements appear intact. IMPRESSION: Mild degenerative disc disease C6-C7 level otherwise negative exam. No acute abnormality is seen.
--- NOTE | 2018-03-14 00:21 | XRay Report ---
FINAL REPORT PROCEDURE: XR SPINE LUMBOSACRAL 2-3V TECHNIQUE: Lumbar spine radiographs, including AP, lateral, and lumbosacral spot views. CPT 07666 HISTORY: Lower back pain COMPARISON: No prior studies are available for comparison. FINDINGS: No fracture or subluxation visualized. Disc spaces are well maintained. Posterior elements appear intact. Minimal degenerative changes seen in the SI joints bilaterally. Surgical clips incidentally noted in the right upper quadrant. IMPRESSION: Postsurgical changes right upper quadrant. Lumbar spine is unremarkable. Minimal degenerative changes SI joints bilaterally..
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
[2018-03-14 00:54] LABS: HCG Qualitative,Urine Negative (Negative)
[2018-03-14 01:12] VITALS: BP 156/96
== END 2018-03-14 01:10 | disposition home or self-care (01) ==
LOC: ED 22:06
DX: S16.1XXA Strain of muscle, fascia and tendon at neck level, initial encounter (principal); S39.012A Strain of muscle, fascia and tendon of lower back, initial encounter; S46.911A Strain of unspecified muscle, fascia and tendon at shoulder and upper arm level, right arm, initial encounter; I10 Essential (primary) hypertension; Z90.49 Acquired absence of other specified parts of digestive tract; Z88.5 Allergy status to narcotic agent; Z79.899 Other long term (current) drug therapy; V49.19XA Passenger injured in collision with other motor vehicles in nontraffic accident, initial encounter; Y93.89 Activity, other specified; Y99.8 Other external cause status; Y92.488 Other paved roadways as the place of occurrence of the external cause
CPT/HCPCS: 72040; 72100; 81025; 99283

== ENCOUNTER 2018-12-13 20:05 | Emergency (ER) | payer MEDICAID ==
--- NOTE | 2018-12-13 20:54 | Emergency Department Report ---
Blank Doc - Documentation Documentation: This is a 48-year-old female that presents with lower abdominal pain with n/v and dizziness. This initial assessment/diagnostic orders/clinical plan/treatment(s) is/are subject to change based on patient's health status, clinical progression and re- assessment by fellow clinical providers in the ED. Further treatment and workup at subsequent clinical providers discretion. Patient/guardians urged not to elope from the ED as their condition may be serious if not clinically assessed and managed. Initial orders include: 1- Patient sent to [facility] for further evaluation and treatment 2- labs 3- UA
[2018-12-13 21:16] LABS: Basophils # (Auto) 0.1 K/mm3 (0.0-0.1); Basophils % (Auto) 1.2 % (0.0-1.8); Eosinophils # (Auto) 0.7 K/mm3 (0.0-0.4); Eosinophils % (Auto) 7.2 % (0.0-4.3); Hematocrit 36.4 % (30.3-42.9); Hemoglobin 11.7 gm/dl (10.1-14.3); Lymphocytes # (Auto) 3.1 K/mm3 (1.2-5.4); Lymphocytes % (Auto) 34.2 % (13.4-35.0); Mean Corpuscular HGB Conc 32 % (30-34); Mean Corpuscular Volume 77 fl (79-97); Monocytes # (Auto) 0.8 K/mm3 (0.0-0.8); Monocytes % (Auto) 8.3 % (0.0-7.3); Platelet Count 313 K/mm3 (140-440); Red Blood Count 4.76 M/mm3 (3.65-5.03); Red Cell Distribution Width 18.4 % (13.2-15.2)
[2018-12-13 21:31] LABS: Alanine Aminotransferase 6 units/L (7-56); Albumin 3.5 g/dL (3.9-5); BUN/Creatinine Ratio 11; Blood Urea Nitrogen 10 mg/dL (7-17); Calcium 8.5 mg/dL (8.4-10.2); Hemolysis Index 12
[2018-12-13 21:43] LABS: Bilirubin,Direct < 0.2 mg/dL (0-0.2)
[2018-12-13] MEDS ORDERED: NORMODYNE IV ONE (21:57)
[2018-12-13] MEDS ORDERED: ZOFRAN IV ONE (21:57)
[2018-12-13] MEDS ORDERED: ANTIVERT PO ONE (21:57)
--- NOTE | 2018-12-13 22:11 | Emergency Department Report ---
HPI - General Chief Complaint: Abdominal Pain Time Seen by Provider: 12/13/18 20:53 - HPI HPI: 48-year-old female presents to the emergency department with complaint of abdominal pain, pelvic pain, back pain, and some dizziness. The abdominal and pelvic pain started about 3 days ago. She denies any dysuria, vaginal bleeding or discharge, fever. She says that the back pain has been going on for the past few weeks. It is mostly to the mid upper back. She denies any trauma. She denies any problems with bowel or bladder, numbness or paresthesias, or any neurological deficits. Lastly, the patient complains of some dizziness that sounds more like vertigo with a room spinning sensation. She denies any headache, vision change, slurred speech. The patient has a past medical history of hypertension, ovarian cysts, hypothyroidism, previous cervical cancer, fibroids, seizures. No recent travel or sick contacts at home. ED Past Medical Hx - Past Medical History Previous Medical History?: Yes Hx Hypertension: Yes Additional medical history: ovarian cyst, hypothyroidism, cx Ca, chronic sinusitis. fibroids. enlarged uterus. abnormal EKG - Surgical History Past Surgical History?: Yes Hx Cholecystectomy: Yes Additional Surgical History: leep at 01/17/2018 - Social History Smoking Status: Current Every Day Smoker - Medications Home Medications: Home Medications Medication Instructions Recorded Confirmed Last Taken Type hydroCHLOROthiazide [HCTZ] 25 mg PO QDAY #90 tablet 05/30/16 09/14/16 1 Day Ago Rx ~09/13/16 25 Atenolol [Tenormin] 50 mg PO DAILY 09/14/16 09/14/16 1 Day Ago History ~09/13/16 50 Cetirizine HCl [ZyrTEC] 10 mg PO DAILY 09/14/16 09/14/16 1 Day Ago History ~09/13/16 10 Lisinopril [Zestril TAB] 40 mg PO DAILY 09/14/16 09/14/16 1 Day Ago History ~09/13/16 40 mg Ibuprofen [Motrin] 800 mg PO Q8HR PRN #20 tablet 10/21/17 Unknown Rx Ondansetron [Zofran Odt] 4 mg PO Q8HR PRN #10 tab.rapdis 10/21/17 Unknown Rx HYDROcodone/APAP 5-325 [[place] 1 each PO Q4HR PRN #10 tablet 11/17/17 Unknown Rx 5/325] Cyclobenzaprine [Flexeril] 10 mg PO BID PRN #20 tablet 03/14/18 Unknown Rx Menthol/Camphor [[place] 1 applic TP BID PRN #1 tube 03/14/18 Unknown Rx Ointment] Naproxen 500 mg PO BID PRN #30 tablet 03/14/18 Unknown Rx Meclizine [Antivert] 25 mg PO TID PRN #20 tablet 12/14/18 Unknown Rx traMADol [Ultram 50 MG tab] 50 mg PO Q6HR PRN #12 tablet 12/14/18 Unknown Rx ED Review of Systems ROS: Stated complaint: HEADACHE/ABD/PELVIC PAIN Other details as noted in HPI Constitutional: denies: chills, fever Eyes: denies: eye pain, vision change ENT: denies: ear pain, throat pain Respiratory: denies: cough, shortness of breath Cardiovascular: denies: chest pain, palpitations Gastrointestinal: abdominal pain. denies: vomiting Genitourinary: denies: dysuria, discharge Musculoskeletal: back pain. denies: arthralgia Skin: denies: rash, lesions Neurological: vertigo. denies: headache, numbness Physical Exam - Physical Exam Vital Signs: Vital Signs 12/13/18 12/13/18 20:53 21:52 Temperature 98.1 F 98.1 F Pulse Rate 99 H 84 Respiratory 18 16 Rate Blood Pressure 178/104 Blood Pressure 188/102 [Left] O2 Sat by Pulse 98 100 Oximetry Physical Exam: GENERAL: The patient is well-developed well-nourished. HENT: Normocephalic. Atraumatic. Patient has moist mucous membranes. EYES: Extraocular motions are intact. Pupils equal reactive to light bilaterally. No nystagmus. NECK: Supple. Trachea is midline. CHEST/LUNGS: Clear to auscultation. There is no respiratory distress noted. HEART/CARDIOVASCULAR: Regular. There is no tachycardia. There is no murmur. ABDOMEN: Abdomen is soft. Mild lower abdominal tenderness to palpation. No guarding. Patient has normal bowel sounds. There is no abdominal distention. SKIN: Skin is warm and dry. NEURO: The patient is awake, alert, and oriented. The patient is cooperative. The patient has no focal neurologic deficits. The patient has normal speech. Cranial nerves II through XII grossly intact. MUSCULOSKELETAL: There is no tenderness or deformity. There is no limitation range of motion. There is no evidence of acute injury. ED Course Vital Signs 12/13/18 12/13/18 20:53 21:52 Temperature 98.1 F 98.1 F Pulse Rate 99 H 84 Respiratory 18 16 Rate Blood Pressure 178/104 Blood Pressure 188/102 [Left] O2 Sat by Pulse 98 100 Oximetry ED Medical Decision Making - Lab Data Result diagrams: 12/13/18 20:57 12/13/18 20:57 - EKG Data -: EKG Interpreted by Hi EKG shows normal: sinus rhythm, axis, intervals, QRS complexes (LVH), ST-T waves Rate: normal - EKG Data When compared to previous EKG there are: previous EKG unavailable Interpretation: LVH - Radiology Data Radiology results: report reviewed PROCEDURE: CT HEAD/BRAIN WO CON TECHNIQUE: Computerized tomography of the head was performed without contrast material. CT DOSE LENGTH PRODUCT: 920.5 mGycm HISTORY: headache, dizziness COMPARISONS: None . FINDINGS: Skull and scalp: Normal . Paranasal sinuses: Moderate opacification of all paranasal sinuses. . Ventricles and subarachnoid spaces: Normal . Cerebrum: No evidence of hemorrhage, acute infarction or mass . Cerebellum and brainstem: No evidence of hemorrhage, acute infarction or mass . Vasculature: Normal . Other: None . ASPECTS: 10 IMPRESSION: There is no evidence of an acute intracranial process. Moderate sinusitis . PROCEDURE: CT ABDOMEN PELVIS W CON TECHNIQUE: Computerized axial tomography of the abdomen and pelvis was performed after the IV injection of iodinated nonionic contrast. CT DOSE LENGTH PRODUCT: 3077.8 mGycm HISTORY: Abd and pelvic pain COMPARISONS: None . FINDINGS: Visualized lower thorax: No significant abnormality. Liver: Normal size and attenuation. Spleen: Normal size and attenuation. Gallbladder and biliary system: The gallbladder is absent. No dilatation of the biliary ductal system.. Pancreas: Normal. Adrenals: Normal. Kidneys: Normal. GI tract: There is no evidence of obstruction. No ileus or enteritis. The appendix is normal. . Lymph nodes and mesentery: Normal. Vasculature: Moderate atherosclerosis of aorta and branching vessels. Bladder: Normal. Reproductive organs: The uterus has a normal size. There are a few areas of hypoattenuation within the uterine myometrium, fibroid formation is possible. Bilateral ovarian cysts are noted, these measure up to 20 mm.. Peritoneum: No free fluid. Musculoskeletal structures: No significant abnormality. Other: None . IMPRESSION: There is no evidence of intestinal or urinary tract obstruction. No ileus or enteritis. The appendix is normal. Previous cholecystectomy. No dilatation of the biliary ductal system. Suspected fibroid formation within the uterus. Bilateral dominant ovarian cysts measure up to 20 mm. . PROCEDURE: US PELVIS DUPLEX DOPPLER COMP TECHNIQUE: Real-time transabdominal sonography in multiple planes of the pelvis was performed. The pelvic structures were not optimally visualized. Transvaginal sonography was then performed to better evaluate the structures and/or abnormalities described below with image documentation. Grayscale, color flow Doppler imaging, and velocity spectral waveform analysis of the ovaries was employed (duplex imaging). HISTORY: pelvic pain COMPARISONS: None . FINDINGS: UTERUS Size: 8.8 x 4.8 x 7.3 cm. Endometrial thickness: 9 mm. Orientation: anteverted. Cervix: Normal. Fibroids/masses: There is a fibroid identified in the uterine myometrium measuring 3 x 2.4 x 2.6 cm. RIGHT Ovary: 2.7 x 1.5 x 2.7 cm. Appearance: Complex partially cystic region measures 2 x 1.6 x 1.9 cm. Doppler images: Normal spectral waveforms and color flow images of the arterial inflow and venous outflow.. LEFT Ovary: 2.7 x 1.8 x 1.8 cm. Appearance: Dominant cyst measures 12 x 13 x 12 mm. Doppler images: Normal spectral waveforms and color flow images of the arterial inflow and venous outflow.. Pelvic fluid: None. IMPRESSION: The uterus size is normal. There is a 3 cm fibroid identified in the myometrium. There is a complex partially cystic region on the right ovary this measures up to centimeters. This may represent a hemorrhagic cyst. Dominant follicular cyst on the left ovary measures up to 13 mm.. This document is electronically signed by Arron Thakkar DO., Dec 14 2018 01:23:57 AM ET Transcribed By: [facility] Dictated By: ARRON THAKKAR MD Electronically Authenticated By: ARRON THAKKAR MD Signed Date/Time: 12/14/18 0126 - Medical Decision Making This patient presents to the emergency department with complaint of lower abdominal pain and pelvic pain, some dizziness and some back pain. On exam ination the patient does not have any focal, motor or sensory deficits in her cranial nerves are intact. She has some mild reproducible lower abdominal pain but the abdomen is soft, nontender, nontoxic in appearance. The patient's labs have been unremarkable. CT of the head did not show any bleed, shift, mass, ischemia, or any other acute process. CT of the abdomen and pelvis shows a uterine fibroid. Pelvic ultrasound once again shows the fibroid as well as an ovarian cyst that may be hemorrhagic. It is possible that the ovarian cyst in the fibroid are the cause of the abdominal and pelvic pain. The patient describes her dizziness as a vertigo-like sensation. She was given some Antiv ert with some improvement. She was seen ambulatory in the emergency department and appears stable. Vital signs stable throughout her ED course. For all these reasons, the patient appears safe for discharge with [facility]. She has been given referrals for both primary care and [facility]. She will return to the ER with any worsening of her symptoms or any acute distress. - Differential Diagnosis colitis, ovarian cyst, UTI, Critical Care Time: No Critical care attestation.: If time is entered above; I have spent that time in minutes in the direct care of this critically ill patient, excluding procedure time. ED Disposition Clinical Impression: Fibroid, Pelvic pain, Vertigo Ovarian cyst Qualifiers: Laterality: unspecified laterality Qualified Code(s): N83.209 - Unspecified ovarian cyst, unspecified side Abdominal pain Qualifiers: Abdominal location: unspecified location Qualified Code(s): R10.9 - Unspecified abdominal pain Hypertension Qualifiers: Hypertension type: essential hypertension Qualified Code(s): I10 - Essential (primary) hypertension Disposition: DC- TO HOME OR SELFCARE Is pt being admited?: No Condition: Stable Instructions: Ovarian Cyst (ED), Uterine Fibroids (ED), Vertigo (ED), Abdominal Pain (ED), Hypertension (ED), Dizziness (ED) Additional Instructions: Please follow up with a primary care physician and [facility]. Return to the emergency Department with any worsening of your symptoms or any acute distress. Please try and stay away from foods that are high in salt and caffeinated products to help with your blood pressure. Keep a blood pressure log. You have been prescribed a medication that is sedating and therefore should not be taken prior to driving, working, and responsible for children and in no way should be mixed with alcohol of any quantity. Prescriptions: Meclizine [Antivert] 25 mg PO TID PRN #20 tablet PRN Reason: Vertigo traMADol [Ultram 50 MG tab] 50 mg PO Q6HR PRN #12 tablet PRN Reason: Pain Referrals: ERIC COOMBS MD [Staff Physician] - 2-3 Days [facility] [Outside] - 2-3 Days [facility] [Provider Group] - 2-3 Days [facility] [Provider Group] - 2-3 Days Time of Disposition: 02:47
[2018-12-13 22:18] LABS: Bilirubin,Urine NEG (Negative); Blood,Urine NEG (Negative); Color,Urine Yellow (Yellow); Mucus,Urine 3+ /HPF; Protein,Urine <15 mg/dL mg/dL (Negative)
--- NOTE | 2018-12-13 23:18 | Cat Scan Report ---
PROCEDURE: CT HEAD/BRAIN WO CON TECHNIQUE: Computerized tomography of the head was performed without contrast material. CT DOSE LENGTH PRODUCT: 920.5 mGycm HISTORY: headache, dizziness COMPARISONS: None . FINDINGS: Skull and scalp: Normal . Paranasal sinuses: Moderate opacification of all paranasal sinuses. . Ventricles and subarachnoid spaces: Normal . Cerebrum: No evidence of hemorrhage, acute infarction or mass . Cerebellum and brainstem: No evidence of hemorrhage, acute infarction or mass . Vasculature: Normal . Other: None . ASPECTS: 10 IMPRESSION: There is no evidence of an acute intracranial process. Moderate sinusitis . This document is electronically signed by Evon Thakkar DO., Dec 13 2018 11:15:37 PM ET
--- NOTE | 2018-12-13 23:24 | Cat Scan Report ---
PROCEDURE: CT ABDOMEN PELVIS W CON TECHNIQUE: Computerized axial tomography of the abdomen and pelvis was performed after the IV inject ion of iodinated nonionic contrast. CT DOSE LENGTH PRODUCT: 3077.8 mGycm HISTORY: Abd and pelvic pain COMPARISONS: None . FINDINGS: Visualized lower thorax: No significant abnormality. Liver: Normal size and attenuation. Spleen: Normal size and attenuation. Gallbladder and biliary system: The gallbladder is absent. No dilatation of the biliary ductal system .. Pancreas: Normal. Adrenals: Normal. Kidneys: Normal. GI tract: There is no evidence of obstruction. No ileus or enteritis. The appendix is normal. . Lymph nodes and mesentery: Normal. Vasculature: Moderate atherosclerosis of aorta and branching vessels. Bladder: Normal. Reproductive organs: The uterus has a normal size. There are a few areas of hypoattenuation within th e uterine myometrium, fibroid formation is possible. Bilateral ovarian cysts are noted, these measure up to 20 mm.. Peritoneum: No free fluid. Musculoskeletal structures: No significant abnormality. Other: None . IMPRESSION: There is no evidence of intestinal or urinary tract obstruction. No ileus or enteritis. The appendix is normal. Previous cholecystectomy. No dilatation of the biliary ductal system. Suspected fibroid formation within the uterus. Bilateral dominant ovarian cysts measure up to 20 mm. . This document is electronically signed by Evon Thakkar DO., Dec 13 2018 11:23:14 PM ET
[2018-12-13] MEDS ORDERED: MORPHINE IV ONE (23:30)
--- NOTE | 2018-12-14 01:26 | Ultrasound Report ---
PROCEDURE: US PELVIS DUPLEX DOPPLER COMP TECHNIQUE: Real-time transabdominal sonography in multiple planes of the pelvis was performed. The p elvic structures were not optimally visualized. Transvaginal sonography was then performed to better evaluate the structures and/or abnormalities described below with image documentation. Grayscale, col or flow Doppler imaging, and velocity spectral waveform analysis of the ovaries was employed (duplex imaging). HISTORY: pelvic pain COMPARISONS: None . FINDINGS: UTERUS Size: 8.8 x 4.8 x 7.3 cm. Endometrial thickness: 9 mm. Orientation: anteverted. Cervix: Normal. Fibroids/masses: There is a fibroid identified in the uterine myometrium measuring 3 x 2.4 x 2.6 cm. RIGHT Ovary: 2.7 x 1.5 x 2.7 cm. Appearance: Complex partially cystic region measures 2 x 1.6 x 1.9 cm. Doppler images: Normal spectral waveforms and color flow images of the arterial inflow and venous out flow.. LEFT Ovary: 2.7 x 1.8 x 1.8 cm. Appearance: Dominant cyst measures 12 x 13 x 12 mm. Doppler images: Normal spectral waveforms and color flow images of the arterial inflow and venous out flow.. Pelvic fluid: None. IMPRESSION: The uterus size is normal. There is a 3 cm fibroid identified in the myometrium. There is a complex partially cystic region on the right ovary this measures up to centimeters. This m ay represent a hemorrhagic cyst. Dominant follicular cyst on the left ovary measures up to 13 mm.. This document is electronically signed by Evon Thakkar DO., Dec 14 2018 01:23:57 AM ET
[2018-12-14] MEDS ORDERED: NORMODYNE IV ONE (01:29)
[2018-12-14 03:28] VITALS: BP 158/99
== END 2018-12-14 03:00 | disposition home or self-care (01) ==
LOC: ED 20:05
DX: N83.202 Unspecified ovarian cyst, left side (principal); N83.201 Unspecified ovarian cyst, right side; I10 Essential (primary) hypertension; D25.9 Leiomyoma of uterus, unspecified; E03.9 Hypothyroidism, unspecified; F17.200 Nicotine dependence, unspecified, uncomplicated; Z90.49 Acquired absence of other specified parts of digestive tract; Z88.6 Allergy status to analgesic agent
CPT/HCPCS: 36415; 70450; 74177; 76830; 80048; 80076; 81001; 83690; 84443; 84484; 84703; 85025; 93005; 93010; 93975; 96374; 96375; 96376; 99284; J2270; J2405; Q9967

== ENCOUNTER 2018-12-25 16:05 | Emergency (ER) | payer MEDICAID, OTHER ==
--- NOTE | 2018-12-25 16:10 | Emergency Department Report ---
Blank Doc - Documentation Documentation: This is a 48-year-old female that presents with abdominal pain with n/v. This initial assessment/diagnostic orders/clinical plan/treatment(s) is/are subject to change based on patient's health status, clinical progression and re- assessment by fellow clinical providers in the ED. Further treatment and workup at subsequent clinical providers discretion. Patient/guardians urged not to elope from the ED as their condition may be serious if not clinically assessed and managed. Initial orders include: 1- Patient sent to [facility] for further evaluation and treatment 2- labs 3- UA
[2018-12-25 16:12] VITALS: BP 177/105
[2018-12-25 16:40] LABS: Basophils # (Auto) 0.1 K/mm3 (0.0-0.1); Basophils % (Auto) 0.7 % (0.0-1.8); Eosinophils # (Auto) 0.3 K/mm3 (0.0-0.4); Eosinophils % (Auto) 3.9 % (0.0-4.3); Hematocrit 40.2 % (30.3-42.9); Lymphocytes % (Auto) 11.9 % (13.4-35.0); Mean Corpuscular HGB Conc 32 % (30-34); Mean Corpuscular Volume 76 fl (79-97); Monocytes # (Auto) 0.5 K/mm3 (0.0-0.8); Red Blood Count 5.26 M/mm3 (3.65-5.03); Red Cell Distribution Width 18.6 % (13.2-15.2)
[2018-12-25 16:51] LABS: Platelet Count 274 K/mm3 (140-440)
[2018-12-25 16:51] LABS: Bilirubin,Urine NEG (Negative); Blood,Urine NEG (Negative); Color,Urine Yellow (Yellow); Mucus,Urine FEW /HPF; Protein,Urine <15 mg/dL mg/dL (Negative); Urobilinogen,Urine < 2.0 mg/dL (<2.0); WBC,Urine < 1.0 /HPF (0.0-6.0)
[2018-12-25 16:58] LABS: Alanine Aminotransferase < 5 units/L (7-56); BUN/Creatinine Ratio 10; Blood Urea Nitrogen 9 mg/dL (7-17); Calcium 8.9 mg/dL (8.4-10.2); Hemolysis Index 8
[2018-12-25] MEDS ORDERED: ZOFRAN IV ONE (17:39)
[2018-12-25] MEDS ORDERED: NACL 0.9% 1000 ML 1,000 ML IV ONE (17:39)
--- NOTE | 2018-12-25 18:13 | Emergency Department Report ---
ED N/V/D HPI - General Chief complaint: Nausea/Vomiting/Diarrhea Stated complaint: CHEST PAIN/DIZZY/NAUSEA Time Seen by Provider: 12/25/18 16:09 Source: patient Mode of arrival: Ambulatory Limitations: No Limitations - History of Present Illness Initial comments: 48-year-old -[place] female presents to the emergency room for complaint of nausea vomiting diarrhea or epigastric pain. Patient does report a history of hypertension and states that she had taken her medications which is amlodipine hydrochlorothiazide and lisinopril. Patient is unaware what could've caused this. Patient denies any dysuria no fever no chills. MD complaint: nausea, vomiting, diarrhea, abdominal pain -: This morning Description of Vomiting: food contents, watery Description of Diarrhea: water Associated Abdominal Pain: Yes Location: epigastric Pain Scale: 8 Quality: cramping Consistency: intermittent Improves with: none Worsens with: vomiting Associated Symptoms: nausea/vomiting. denies: fever/chills - Related Data Home Medications Medication Instructions Recorded Confirmed Last Taken Atenolol [Tenormin] 50 mg PO DAILY 09/14/16 09/14/16 1 Day Ago ~09/13/16 50 Cetirizine HCl [ZyrTEC] 10 mg PO DAILY 09/14/16 09/14/16 1 Day Ago ~09/13/16 10 Lisinopril [Zestril TAB] 40 mg PO DAILY 09/14/16 09/14/16 1 Day Ago ~09/13/16 40 mg Previous Rx's Medication Instructions Recorded Last Taken Type hydroCHLOROthiazide [HCTZ] 25 mg PO QDAY #90 tablet 05/30/16 1 Day Ago Rx ~09/13/16 25 Ibuprofen [Motrin] 800 mg PO Q8HR PRN #20 tablet 10/21/17 Unknown Rx Ondansetron [Zofran Odt] 4 mg PO Q8HR PRN #10 tab.rapdis 10/21/17 Unknown Rx HYDROcodone/APAP 5-325 [[place] 1 each PO Q4HR PRN #10 tablet 11/17/17 Unknown Rx 5/325] Cyclobenzaprine [Flexeril] 10 mg PO BID PRN #20 tablet 03/14/18 Unknown Rx Menthol/Camphor [[place] 1 applic TP BID PRN #1 tube 03/14/18 Unknown Rx Ointment] Naproxen 500 mg PO BID PRN #30 tablet 03/14/18 Unknown Rx Meclizine [Antivert] 25 mg PO TID PRN #20 tablet 12/14/18 Unknown Rx traMADol [Ultram 50 MG tab] 50 mg PO Q6HR PRN #12 tablet 12/14/18 Unknown Rx Allergies Allergy/AdvReac Type Severity Reaction Status Date / Time codeine Allergy Rash / Verified 02/23/18 18:01 VOMITING ED Review of Systems ROS: Stated complaint: CHEST PAIN/DIZZY/NAUSEA Other details as noted in HPI Comment: All other systems reviewed and negative Constitutional: denies: chills, fever Eyes: denies: eye pain, eye discharge, vision change ENT: denies: ear pain, throat pain Respiratory: denies: cough, shortness of breath, wheezing Cardiovascular: denies: chest pain, palpitations Endocrine: no symptoms reported Gastrointestinal: abdominal pain, nausea, vomiting, diarrhea Genitourinary: denies: urgency, dysuria, discharge Musculoskeletal: denies: back pain, joint swelling, arthralgia Skin: denies: rash, lesions Neurological: headache ED Past Medical Hx - Past Medical History Previous Medical History?: Yes Hx Hypertension: Yes Additional medical history: ovarian cyst, hypothyroidism, cx Ca, chronic sinusi tis. fibroids. enlarged uterus. abnormal EKG - Surgical History Past Surgical History?: Yes Hx Cholecystectomy: Yes Additional Surgical History: leep at 01/17/2018 - Social History Smoking Status: Never Smoker Substance Use Type: Alcohol - Medications Home Medications: Home Medications Medication Instructions Recorded Confirmed Last Taken Type hydroCHLOROthiazide [HCTZ] 25 mg PO QDAY #90 tablet 05/30/16 09/14/16 1 Day Ago Rx ~09/13/16 25 Atenolol [Tenormin] 50 mg PO DAILY 09/14/16 09/14/16 1 Day Ago History ~09/13/16 50 Cetirizine HCl [ZyrTEC] 10 mg PO DAILY 09/14/16 09/14/16 1 Day Ago History ~09/13/16 10 Lisinopril [Zestril TAB] 40 mg PO DAILY 09/14/16 09/14/16 1 Day Ago History ~09/13/16 40 mg Ibuprofen [Motrin] 800 mg PO Q8HR PRN #20 tablet 10/21/17 Unknown Rx Ondansetron [Zofran Odt] 4 mg PO Q8HR PRN #10 tab.rapdis 10/21/17 Unknown Rx HYDROcodone/APAP 5-325 [[place] 1 each PO Q4HR PRN #10 tablet 11/17/17 Unknown Rx 5/325] Cyclobenzaprine [Flexeril] 10 mg PO BID PRN #20 tablet 03/14/18 Unknown Rx Menthol/Camphor [[place] 1 applic TP BID PRN #1 tube 03/14/18 Unknown Rx Ointment] Naproxen 500 mg PO BID PRN #30 tablet 03/14/18 Unknown Rx Meclizine [Antivert] 25 mg PO TID PRN #20 tablet 12/14/18 Unknown Rx traMADol [Ultram 50 MG tab] 50 mg PO Q6HR PRN #12 tablet 12/14/18 Unknown Rx ED Physical Exam - General Limitations: No Limitations General appearance: alert, in no apparent distress - Head Head exam: Present: atraumatic, normocephalic - Eye Eye exam: Present: normal appearance - ENT ENT exam: Present: mucous membranes moist - Neck Neck exam: Present: normal inspection - Respiratory Respiratory exam: Present: normal lung sounds bilaterally. Absent: respiratory distress - Cardiovascular Cardiovascular Exam: Present: regular rate, normal rhythm. Absent: systolic murmur, diastolic murmur, rubs, gallop - GI/Abdominal GI/Abdominal exam: Present: soft, tenderness (epigastric), normal bowel sounds. Absent: distended - Extremities Exam Extremities exam: Present: normal inspection - Back Exam Back exam: Present: normal inspection - Neurological Exam Neurological exam: Present: alert, oriented X3 - Psychiatric Psychiatric exam: Present: normal affect, normal mood - Skin Skin exam: Present: warm, dry, intact, normal color. Absent: rash ED Course Vital Signs 12/25/18 12/25/18 16:09 20:00 Temperature 98.4 F Pulse Rate 101 H Respiratory 16 16 Rate Blood Pressure 177/105 O2 Sat by Pulse 98 Oximetry ED Medical Decision Making - Lab Data Result diagrams: 12/25/18 16:23 12/25/18 16:23 - Radiology Data Radiology results: report reviewed Patient: ANJELIAC YIP MR#: [id number] : 1970 Acct:[id number] Age/Sex: 48 / F ADM Date: 12/25/18 Loc: ED Attending Dr: Ordering Physician: JAMARCUS NOGUEIRA Date of Service: 12/25/18 Procedure(s): US abdomen complete Accession Number(s): [id number] cc: JAMARCUS NOGUEIRA PROCEDURE: US ABDOMEN COMPLETE TECHNIQUE: Real-time sonography in multiple planes of the abdomen was performed with image documentation. HISTORY: epigastric tenderness n/v COMPARISONS: CT A/P 12/13/2018 . FINDINGS: Liver: Normal size and echotexture with no evidence of cystic or solid mass lesions. Gallbladder: Prior cholecystectomy Intrahepatic bile ducts: Normal caliber . Extrahepatic bile ducts: Normal caliber. Common bile duct is 2.8 mm in diameter Pancreas: Normal as visualized with suboptimal depiction of the pancreatic tail. Aorta: Visualized portions appear normal. IVC: Visualized portions appear normal. RIGHT kidney: Normal echotexture. No focal renal mass, calculus, or hydronephrosis. Length: 10.1 cm. LEFT kidney: Normal echotexture. No focal renal mass, calculus, or hydronephrosis. Length: 10.5 cm. Spleen: Normal size and echotexture. No focal lesions. Spleen measures 9.7 cm in length Intraperitoneal fluid: None . Other: None . IMPRESSION: Normal Examination. Prior cholecystectomy This document is electronically signed by Marquez Brian MD., December 25 2018 10:21:44 PM ET Transcribed By: [facility] Dictated By: MARQUEZ BRIAN MD Electronically Authenticated By: MARQUEZ BRIAN MD Signed Date/Time: 12/25/182122 DD/ 09 TD/TT: 12/25/182110 - Medical Decision Making 48-year-old female comes in with nausea vomiting diarrhea and epigastric pain. Ultrasound is negative for any abnormalities. Patient received IV fluids and IV Zofran and acetaminophen for headache. Labs are stable patient be discharged home to follow up with her primary care provider. Critical care attestation.: If time is entered above; I have spent that time in minutes in the direct care of this critically ill patient, excluding procedure time. ED Disposition Clinical Impression: Abdominal pain, Nausea vomiting and diarrhea Disposition: DC- TO HOME OR SELFCARE Is pt being admited?: No Does the pt Need Aspirin: No Condition: Stable Instructions: Abdominal Pain (ED), Acute Nausea and Vomiting (ED), Acute Diarrhea (ED) Additional Instructions: Please increase her water intake eventually diet as tolerated. Follow-up to primary care provider. Labs are stable ultrasound was negative
[2018-12-25] MEDS ORDERED: TYLENOL PO ONE (19:32)
[2018-12-25] MEDS ORDERED: CARAFATE PO ONE (20:32)
--- NOTE | 2018-12-25 21:23 | Ultrasound Report ---
PROCEDURE: US ABDOMEN COMPLETE TECHNIQUE: Real-time sonography in multiple planes of the abdomen was performed with image documenta tion. HISTORY: epigastric tenderness n/v COMPARISONS: CT A/P 12/13/2018 . FINDINGS: Liver: Normal size and echotexture with no evidence of cystic or solid mass lesions. Gallbladder: Prior cholecystectomy Intrahepatic bile ducts: Normal caliber . Extrahepatic bile ducts: Normal caliber. Common bile duct is 2.8 mm in diameter Pancreas: Normal as visualized with suboptimal depiction of the pancreatic tail. Aorta: Visualized portions appear normal. IVC: Visualized portions appear normal. RIGHT kidney: Normal echotexture. No focal renal mass, calculus, or hydronephrosis. Length: 10.1 c m. LEFT kidney: Normal echotexture. No focal renal mass, calculus, or hydronephrosis. Length: 10.5 cm . Spleen: Normal size and echotexture. No focal lesions. Spleen measures 9.7 cm in length Intraperitoneal fluid: None . Other: None . IMPRESSION: Normal Examination. Prior cholecystectomy This document is electronically signed by Emi Brian MD., December 25 2018 10:21:44 PM ET
== END 2018-12-25 21:50 | disposition home or self-care (01) ==
LOC: ED 16:05
DX: R10.13 Epigastric pain (principal); R11.2 Nausea with vomiting, unspecified; R19.7 Diarrhea, unspecified; I10 Essential (primary) hypertension; E03.9 Hypothyroidism, unspecified; Z90.49 Acquired absence of other specified parts of digestive tract; Z88.6 Allergy status to analgesic agent; Z79.899 Other long term (current) drug therapy
CPT/HCPCS: 36415; 76700; 80053; 81001; 83690; 84703; 85025; 93005; 93010; 96361; 96374; 99284; J2405; J7030

== ENCOUNTER 2019-03-10 10:40 | Emergency (ER) | payer MEDICAID, OTHER ==
[2019-03-10] MEDS ORDERED: ASPIRIN ONE (11:43)
--- NOTE | 2019-03-10 11:45 | Event Note ---
ED Screening Note Date of service: 03/10/19 Time: 11:42 ED Screening Note: 48 y/o female comes in for sharp pain in her lower abdomen that started about 5 am. No dysuria, no vaginal discharge or vag bleeding. LMP January. This initial assessment/diagnostic orders/clinical plan/treatment(s) is/are subject to change based on patients health status, clinical progression and re- assessment by fellow clinical providers in the ED. Further treatment and workup at subsequent clinical providers discretion. Patient/guardian urged not to elope from the ED as their condition may be serious if not clinically assessed and managed. Initial orders include:
[2019-03-10 12:39] LABS: Basophils # (Auto) 0.1 K/mm3 (0.0-0.1); Basophils % (Auto) 1.2 % (0.0-1.8); Eosinophils # (Auto) 0.6 K/mm3 (0.0-0.4); Eosinophils % (Auto) 7.1 % (0.0-4.3); Hematocrit 38.1 % (30.3-42.9); Hemoglobin 12.4 gm/dl (10.1-14.3); Lymphocytes # (Auto) 2.6 K/mm3 (1.2-5.4); Lymphocytes % (Auto) 30.8 % (13.4-35.0); Mean Corpuscular HGB Conc 33 % (30-34); Mean Corpuscular Volume 79 fl (79-97); Monocytes # (Auto) 0.6 K/mm3 (0.0-0.8); Platelet Count 300 K/mm3 (140-440); Red Blood Count 4.85 M/mm3 (3.65-5.03); Red Cell Distribution Width 17.7 % (13.2-15.2)
[2019-03-10] MEDS ORDERED: PERCOCET 5/325 PO STA (13:05)
[2019-03-10] MEDS ORDERED: ZOFRAN ODT PO STA (13:05)
--- NOTE | 2019-03-10 13:18 | Emergency Department Report ---
ED Abdominal Pain HPI - General Chief Complaint: Abdominal Pain Stated Complaint: ABD/PELVIC PAIN Time Seen by Provider: 03/10/19 11:41 Source: patient Mode of arrival: Ambulatory Limitations: No Limitations - History of Present Illness Initial Comments: 48-year-old -[place] female with a past medical history of uterine fibroids, presents much department complaining of pelvic pain and cramping for the last couple days. She reports no trauma, no dysuria, no hematuria, no fever, chills, sweats. No n, palpitations, nausea, vomiting. Reports having had a vague pain to the epigastric area of couple hours prior to arrival. Current discomfort is in the pelvic regions. She reports no numbness or tingling. No shortness of breath MD Complaint: abdominal pain -: Gradual Location: suprapubic Migration to: suprapubic Severity: mild Quality: cramping Consistency: constant, intermittent Improves With: nothing Worsens With: nothing Associated Symptoms: denies: nausea, diarrhea, constipation, dysuria, hematemesis, melena, hematuria, anorexia, syncope - Related Data Home Medications Medication Instructions Recorded Confirmed Last Taken Atenolol [Tenormin] 50 mg PO DAILY 09/14/16 09/14/16 1 Day Ago ~09/13/16 50 Cetirizine HCl [ZyrTEC] 10 mg PO DAILY 09/14/16 09/14/16 1 Day Ago ~09/13/16 10 Lisinopril [Zestril TAB] 40 mg PO DAILY 09/14/16 09/14/16 1 Day Ago ~09/13/16 40 mg Previous Rx's Medication Instructions Recorded Last Taken Type hydroCHLOROthiazide [HCTZ] 25 mg PO QDAY #90 tablet 05/30/16 1 Day Ago Rx ~09/13/16 25 Ibuprofen [Motrin] 800 mg PO Q8HR PRN #20 tablet 10/21/17 Unknown Rx Ondansetron [Zofran Odt] 4 mg PO Q8HR PRN #10 tab.rapdis 10/21/17 Unknown Rx HYDROcodone/APAP 5-325 [[place] 1 each PO Q4HR PRN #10 tablet 11/17/17 Unknown Rx 5/325] Cyclobenzaprine [Flexeril] 10 mg PO BID PRN #20 tablet 03/14/18 Unknown Rx Menthol/Camphor [[place] 1 applic TP BID PRN #1 tube 03/14/18 Unknown Rx Ointment] Naproxen 500 mg PO BID PRN #30 tablet 03/14/18 Unknown Rx Meclizine [Antivert] 25 mg PO TID PRN #20 tablet 12/14/18 Unknown Rx traMADol [Ultram 50 MG tab] 50 mg PO Q6HR PRN #12 tablet 12/14/18 Unknown Rx Ketorolac [Toradol] 10 mg PO Q6H PRN #14 tablet 03/10/19 Unknown Rx Allergies Allergy/AdvReac Type Severity Reaction Status Date / Time codeine Allergy Rash / Verified 03/10/19 11:10 VOMITING ED Review of Systems ROS: Stated complaint: ABD/PELVIC PAIN Other details as noted in HPI Comment: All other systems reviewed and negative ED Past Medical Hx - Past Medical History Hx Hypertension: Yes Additional medical history: ovarian cyst, hypothyroidism, cx Ca, chronic sinusitis. fibroids. enlarged uterus. abnormal EKG - Surgical History Hx Cholecystectomy: Yes Additional Surgical History: leep at 01/17/2018 - Social History Smoking Status: Never Smoker Substance Use Type: None - Medications Home Medications: Home Medications Medication Instructions Recorded Confirmed Last Taken Type hydroCHLOROthiazide [HCTZ] 25 mg PO QDAY #90 tablet 05/30/16 09/14/16 1 Day Ago Rx ~09/13/16 25 Atenolol [Tenormin] 50 mg PO DAILY 09/14/16 09/14/16 1 Day Ago History ~09/13/16 50 Cetirizine HCl [ZyrTEC] 10 mg PO DAILY 09/14/16 09/14/16 1 Day Ago History ~09/13/16 10 Lisinopril [Zestril TAB] 40 mg PO DAILY 09/14/16 09/14/16 1 Day Ago History ~09/13/16 40 mg Ibuprofen [Motrin] 800 mg PO Q8HR PRN #20 tablet 10/21/17 Unknown Rx Ondansetron [Zofran Odt] 4 mg PO Q8HR PRN #10 tab.rapdis 10/21/17 Unknown Rx HYDROcodone/APAP 5-325 [[place] 1 each PO Q4HR PRN #10 tablet 11/17/17 Unknown Rx 5/325] Cyclobenzaprine [Flexeril] 10 mg PO BID PRN #20 tablet 03/14/18 Unknown Rx Menthol/Camphor [[place] 1 applic TP BID PRN #1 tube 03/14/18 Unknown Rx Ointment] Naproxen 500 mg PO BID PRN #30 tablet 03/14/18 Unknown Rx Meclizine [Antivert] 25 mg PO TID PRN #20 tablet 12/14/18 Unknown Rx traMADol [Ultram 50 MG tab] 50 mg PO Q6HR PRN #12 tablet 12/14/18 Unknown Rx Ketorolac [Toradol] 10 mg PO Q6H PRN #14 tablet 03/10/19 Unknown Rx ED Physical Exam - General Limitations: No Limitations General appearance: alert, in no apparent distress - Head Head exam: Present: atraumatic, normocephalic - Eye Eye exam: Present: normal appearance, PERRL, EOMI Pupils: Present: normal accommodation - ENT ENT exam: Present: normal exam, mucous membranes moist - Neck Neck exam: Present: normal inspection - Respiratory Respiratory exam: Present: normal lung sounds bilaterally. Absent: respiratory distress - Cardiovascular Cardiovascular Exam: Present: regular rate, normal rhythm. Absent: systolic murmur, diastolic murmur, rubs, gallop - GI/Abdominal GI/Abdominal exam: Present: soft, tenderness (suprapubic region), normal bowel sounds. Absent: rebound, diminished bowel sounds, hyperactive bowel sounds, pulsatile mass, hernia - Extremities Exam Extremities exam: Present: normal inspection - Back Exam Back exam: Present: normal inspection - Neurological Exam Neurological exam: Present: alert, oriented X3 - Psychiatric Psychiatric exam: Present: normal affect, normal mood - Skin Skin exam: Present: warm, dry, intact, normal color. Absent: rash ED Course Vital Signs 03/10/19 11:36 Temperature 98.6 F Pulse Rate 86 Respiratory 18 Rate Blood Pressure 173/101 O2 Sat by Pulse 100 Oximetry ED Medical Decision Making - Lab Data Result diagrams: 03/10/19 12:23 03/10/19 12:23 - Medical Decision Making 40-year-old female with suprapubic pain with confirmed ovarian cyst and uterine fibroids. Stable vital signs. Laboratory data will have her follow up with [facility] for definitive management of these 2 issues. There is no eye was infectious process at this present time. Emergent or urgent medical condition. Critical care attestation.: If time is entered above; I have spent that time in minutes in the direct care of this critically ill patient, excluding procedure time. ED Disposition Clinical Impression: Ovarian cyst, Fibroid, uterine Disposition: - TO HOME OR SELFCARE Is pt being admited?: No Does the pt Need Aspirin: No Condition: Stable Instructions: Abdominal Pain (ED), Ovarian Cyst (ED), Uterine Fibroids (ED) Prescriptions: Ketorolac [Toradol] 10 mg PO Q6H PRN #14 tablet PRN Reason: Pain Referrals: MARIELY GARCIA MD [Primary Care Provider] - 3-5 Days [facility] [Provider Group] - 3-5 Days
[2019-03-10 14:16] LABS: Bilirubin,Urine NEG (Negative); Blood,Urine NEG (Negative); Color,Urine Yellow (Yellow); Protein,Urine <15 mg/dL mg/dL (Negative); Urobilinogen,Urine < 2.0 mg/dL (<2.0)
[2019-03-10 14:19] LABS: Alanine Aminotransferase 6 units/L (7-56); Albumin 3.8 g/dL (3.9-5); BUN/Creatinine Ratio 12; Blood Urea Nitrogen 11 mg/dL (7-17); Calcium 9.2 mg/dL (8.4-10.2); Hemolysis Index 15
[2019-03-10 14:22] LABS: HCG Qualitative,Urine Negative (Negative); RBC,Urine < 1.0 /HPF (0.0-6.0); WBC,Urine < 1.0 /HPF (0.0-6.0)
--- NOTE | 2019-03-10 15:52 | Ultrasound Report ---
US pelvic complete INDICATION / CLINICAL INFORMATION: pelvic pain. COMPARISON: None available. FINDINGS: 2.4 cm solid mass, consistent with fibroid, is demonstrated in the left uterine body. Uterus otherwis e appears negative. Endometrial stripe measures 1 cm in thickness. Left ovary is normal. Right ovary contains 2 cysts, each measuring just less than 2 cm maximum diamet er. Color Doppler imaging shows flow in both ovaries. Small amount of free fluid in the pelvis. IMPRESSION: 1. Right ovarian cyst with small amount of free fluid in the cul-de-sac. 2. 2.4 cm fibroid in the left uterine body. Signer Name: Joce Eagle MD Signed: 03/10/2019 3:47 PM Workstation Name: [id number]
--- NOTE | 2019-03-10 16:17 | Ultrasound Report ---
See report of pelvic ultrasound. Signer Name: Joce Eagel MD Signed: 03/10/2019 4:13 PM Workstation Name: [id number]
[2019-03-10] MEDS ORDERED: ASPIRIN PO ONE (16:27)
[2019-03-10 16:48] VITALS: BP 162/96
== END 2019-03-10 16:46 | disposition home or self-care (01) ==
LOC: ED 10:40
DX: D25.9 Leiomyoma of uterus, unspecified (principal); N83.201 Unspecified ovarian cyst, right side; R10.13 Epigastric pain; I10 Essential (primary) hypertension; E03.9 Hypothyroidism, unspecified; Z90.49 Acquired absence of other specified parts of digestive tract; Z98.890 Other specified postprocedural states; Z88.5 Allergy status to narcotic agent; Z79.899 Other long term (current) drug therapy
CPT/HCPCS: 36415; 76830; 76856; 80053; 81001; 81025; 83690; 85025; 87086; 93005; 93010; Q0162

== ENCOUNTER 2019-04-02 06:05 | Emergency (ER) | payer MEDICAID ==
[2019-04-02] MEDS ORDERED: ASPIRIN PO ONE (06:14)
--- NOTE | 2019-04-02 06:45 | XRay Report ---
CHEST 1 VIEW [id number] INDICATION / CLINICAL INFORMATION: Chest Pain. COMPARISON: 10/20/2015 FINDINGS: SUPPORT DEVICES: None HEART / MEDIASTINUM: No significant abnormality. LUNGS / PLEURA: No significant pulmonary or pleural abnormality. No pneumothorax. ADDITIONAL FINDINGS: No significant additional findings. IMPRESSION: No significant acute abnormality Signer Name: All Gracia MD Signed: 04/02/2019 6:41 AM Workstation Name: [id number]
[2019-04-02 06:57] LABS: Basophils # (Auto) 0.1 K/mm3 (0.0-0.1); Eosinophils # (Auto) 0.5 K/mm3 (0.0-0.4); Hemoglobin 12.4 gm/dl (10.1-14.3); Lymphocytes # (Auto) 2.6 K/mm3 (1.2-5.4); Lymphocytes % (Auto) 32.1 % (13.4-35.0); Mean Corpuscular HGB Conc 34 % (30-34); Mean Corpuscular Volume 79 fl (79-97); Monocytes # (Auto) 0.8 K/mm3 (0.0-0.8); Monocytes % (Auto) 9.3 % (0.0-7.3); Platelet Count 262 K/mm3 (140-440); Red Blood Count 4.66 M/mm3 (3.65-5.03); Red Cell Distribution Width 17.8 % (13.2-15.2)
[2019-04-02 07:18] LABS: BUN/Creatinine Ratio 14; Blood Urea Nitrogen 11 mg/dL (7-17); Calcium 8.5 mg/dL (8.4-10.2); Hemolysis Index 118
[2019-04-02] MEDS ORDERED: NORCO 5/325 PO ONE (07:18)
[2019-04-02] MEDS ORDERED: ZOFRAN ODT PO ONE (07:18)
[2019-04-02 07:47] LABS: Alanine Aminotransferase 12 units/L (7-56); Albumin 3.4 g/dL (3.9-5)
--- NOTE | 2019-04-02 07:47 | Emergency Department Report ---
ED General Adult HPI - General Chief complaint: Fever Stated complaint: FEVER,PAIN CHEST Time Seen by Provider: 04/02/19 06:46 Source: patient Mode of arrival: Ambulatory Limitations: No Limitations - History of Present Illness Initial comments: The patient presents to the emergency department with the chief complaint of left-sided chest pain that started yesterday. The patient describes the chest pain as a heaviness in nature and reports that is worse with taking deep breaths. Patient denies any radiation of chest pain or shortness of breath. Merlin adame does have a history of a father dying of an [place] in his 50s. -: Sudden Location: chest Radiation: non-radiation Severity scale (0 -10): 8 Quality: other (heaviness) Consistency: constant Improves with: none Worsens with: none Associated Symptoms: denies other symptoms Treatments Prior to Arrival: none - Related Data Home Medications Medication Instructions Recorded Confirmed Last Taken Atenolol [Tenormin] 50 mg PO DAILY 09/14/16 09/14/16 1 Day Ago ~09/13/16 50 Cetirizine HCl [ZyrTEC] 10 mg PO DAILY 09/14/16 09/14/16 1 Day Ago ~09/13/16 10 Lisinopril [Zestril TAB] 40 mg PO DAILY 09/14/16 09/14/16 1 Day Ago ~09/13/16 40 mg Previous Rx's Medication Instructions Recorded Last Taken Type hydroCHLOROthiazide [HCTZ] 25 mg PO QDAY #90 tablet 05/30/16 1 Day Ago Rx ~09/13/16 25 Ibuprofen [Motrin] 800 mg PO Q8HR PRN #20 tablet 10/21/17 Unknown Rx Ondansetron [Zofran Odt] 4 mg PO Q8HR PRN #10 tab.rapdis 10/21/17 Unknown Rx HYDROcodone/APAP 5-325 [[place] 1 each PO Q4HR PRN #10 tablet 11/17/17 Unknown Rx 5/325] Cyclobenzaprine [Flexeril] 10 mg PO BID PRN #20 tablet 03/14/18 Unknown Rx Menthol/Camphor [[place] 1 applic TP BID PRN #1 tube 03/14/18 Unknown Rx Ointment] Naproxen 500 mg PO BID PRN #30 tablet 03/14/18 Unknown Rx Meclizine [Antivert] 25 mg PO TID PRN #20 tablet 12/14/18 Unknown Rx traMADol [Ultram 50 MG tab] 50 mg PO Q6HR PRN #12 tablet 12/14/18 Unknown Rx Ketorolac [Toradol] 10 mg PO Q6H PRN #14 tablet 03/10/19 Unknown Rx ALBUTEROL Inhaler (OR & NICU) 2 puff IH Q4HR PRN #1 inhalation 04/02/19 Unknown Rx [ProAir HFA Inhaler] Naproxen [Naprosyn] 500 mg PO BID PRN #20 tablet 04/02/19 Unknown Rx Allergies Allergy/AdvReac Type Severity Reaction Status Date / Time codeine Allergy Rash / Verified 03/10/19 11:10 VOMITING ED Review of Systems ROS: Stated complaint: FEVER,PAIN CHEST Other details as noted in HPI Comment: All other systems reviewed and negative Constitutional: denies: chills, fever Eyes: denies: eye pain, eye discharge, vision change ENT: denies: ear pain, throat pain Respiratory: denies: cough, shortness of breath, wheezing Cardiovascular: chest pain. denies: palpitations Endocrine: no symptoms reported Gastrointestinal: denies: abdominal pain, nausea, diarrhea Genitourinary: denies: urgency, dysuria, discharge Musculoskeletal: denies: back pain, joint swelling, arthralgia Skin: denies: rash, lesions Neurological: denies: headache, weakness, paresthesias Psychiatric: denies: anxiety, depression Hematological/Lymphatic: denies: easy bleeding, easy bruising ED Past Medical Hx - Past Medical History Previous Medical History?: Yes Hx Hypertension: Yes Hx Seizures: Yes Additional medical history: ovarian cyst, hypothyroidism, cx Ca, chronic sinusitis. fibroids. enlarged uterus. abnormal EKG - Surgical History Past Surgical History?: Yes Hx Cholecystectomy: Yes Additional Surgical History: leep at 01/17/2018 - Social History Smoking Status: Never Smoker Substance Use Type: Alcohol - Medications Home Medications: Home Medications Medication Instructions Recorded Confirmed Last Taken Type hydroCHLOROthiazide [HCTZ] 25 mg PO QDAY #90 tablet 05/30/16 09/14/16 1 Day Ago Rx ~09/13/16 25 Atenolol [Tenormin] 50 mg PO DAILY 09/14/16 09/14/16 1 Day Ago History ~09/13/16 50 Cetirizine HCl [ZyrTEC] 10 mg PO DAILY 09/14/16 09/14/16 1 Day Ago History ~09/13/16 10 Lisinopril [Zestril TAB] 40 mg PO DAILY 09/14/16 09/14/16 1 Day Ago History ~09/13/16 40 mg Ibuprofen [Motrin] 800 mg PO Q8HR PRN #20 tablet 10/21/17 Unknown Rx Ondansetron [Zofran Odt] 4 mg PO Q8HR PRN #10 tab.rapdis 10/21/17 Unknown Rx HYDROcodone/APAP 5-325 [[place] 1 each PO Q4HR PRN #10 tablet 11/17/17 Unknown Rx 5/325] Cyclobenzaprine [Flexeril] 10 mg PO BID PRN #20 tablet 03/14/18 Unknown Rx Menthol/Camphor [[place] 1 applic TP BID PRN #1 tube 03/14/18 Unknown Rx Ointment] Naproxen 500 mg PO BID PRN #30 tablet 03/14/18 Unknown Rx Meclizine [Antivert] 25 mg PO TID PRN #20 tablet 12/14/18 Unknown Rx traMADol [Ultram 50 MG tab] 50 mg PO Q6HR PRN #12 tablet 12/14/18 Unknown Rx Ketorolac [Toradol] 10 mg PO Q6H PRN #14 tablet 03/10/19 Unknown Rx ALBUTEROL Inhaler (OR & NICU) 2 puff IH Q4HR PRN #1 inhalation 04/02/19 Unknown Rx [ProAir HFA Inhaler] Naproxen [Naprosyn] 500 mg PO BID PRN #20 tablet 04/02/19 Unknown Rx ED Physical Exam - General Limitations: No Limitations General appearance: alert, in no apparent distress - Head Head exam: Present: atraumatic, normocephalic - Eye Eye exam: Present: normal appearance, PERRL, EOMI - ENT ENT exam: Present: mucous membranes moist - Neck Neck exam: Present: normal inspection - Respiratory Respiratory exam: Present: normal lung sounds bilaterally. Absent: respiratory distress - Cardiovascular Cardiovascular Exam: Present: regular rate, normal rhythm. Absent: systolic murmur, diastolic murmur, rubs, gallop - GI/Abdominal GI/Abdominal exam: Present: soft, normal bowel sounds. Absent: distended, tenderness - Extremities Exam Extremities exam: Present: normal inspection - Back Exam Back exam: Present: normal inspection - Neurological Exam Neurological exam: Present: alert, oriented X3, CN II-XII intact. Absent: motor sensory deficit - Psychiatric Psychiatric exam: Present: normal affect, normal mood - Skin Skin exam: Present: warm, dry, intact, normal color. Absent: rash ED Course Vital Signs 04/02/19 04/02/19 04/02/19 06:16 09:38 10:45 Temperature 97.9 F Pulse Rate 90 76 91 H Respiratory 16 14 15 Rate Blood Pressure 174/99 141/98 122/85 [Right] O2 Sat by Pulse 100 99 99 Oximetry ED Medical Decision Making - Lab Data Result diagrams: 04/02/19 06:39 04/02/19 06:39 Lab Results 04/02/19 04/02/19 04/02/19 Range/Units 06:35 06:39 06:39 WBC 8.2 (4.5-11.0) K/mm3 RBC 4.66 (3.65-5.03) M/mm3 Hgb 12.4 (10.1-14.3) gm/dl Hct 37.0 (30.3-42.9) % MCV 79 (79-97) fl MCH 27 L (28-32) pg MCHC 34 (30-34) % RDW 17.8 H (13.2-15.2) % Plt Count 262 (140-440) K/mm3 Lymph % (Auto) 32.1 (13.4-35.0) % [place] % (Auto) 9.3 H (0.0-7.3) % Eos % (Auto) 6.0 H (0.0-4.3) % Baso % (Auto) 1.0 (0.0-1.8) % Lymph # 2.6 (1.2-5.4) K/mm3 [place] # 0.8 (0.0-0.8) K/mm3 Eos # 0.5 H (0.0-0.4) K/mm3 Baso # 0.1 (0.0-0.1) K/mm3 Seg Neutrophils % 51.6 (40.0-70.0) % Seg Neutrophils # 4.2 (1.8-7.7) K/mm3 D-Dimer (0-234) ng/mlDDU Sodium 136 L (137-145) mmol/L Potassium 4.2 (3.6-5.0) mmol/L Chloride 103.6 (98-107) mmol/L Carbon Dioxide 21 L (22-30) mmol/L Anion Gap 16 mmol/L BUN 11 (7-17) mg/dL Creatinine 0.8 (0.7-1.2) mg/dL Estimated GFR > 60 ml/min BUN/Creatinine Ratio 14 % Glucose 94 (65-100) mg/dL Calcium 8.5 (8.4-10.2) mg/dL Total Bilirubin 0.30 (0.1-1.2) mg/dL Direct Bilirubin < 0.2 (0-0.2) mg/dL AST 18 (5-40) units/L ALT 12 (7-56) units/L Alkaline Phosphatase 71 (35-129) units/L Troponin T < 0.010 (0.00-0.029) ng/mL Total Protein 6.9 (6.3-8.2) g/dL Albumin 3.4 L (3.9-5) g/dL Albumin/Globulin Ratio 1.0 % Lipase 23 (13-60) units/L 04/02/19 04/02/19 Range/Units 07:21 08:40 WBC (4.5-11.0) K/mm3 RBC (3.65-5.03) M/mm3 Hgb (10.1-14.3) gm/dl Hct (30.3-42.9) % MCV (79-97) fl MCH (28-32) pg MCHC (30-34) % RDW (13.2-15.2) % Plt Count (140-440) K/mm3 Lymph % (Auto) (13.4-35.0) % [place] % (Auto) (0.0-7.3) % Eos % (Auto) (0.0-4.3) % Baso % (Auto) (0.0-1.8) % Lymph # (1.2-5.4) K/mm3 [place] # (0.0-0.8) K/mm3 Eos # (0.0-0.4) K/mm3 Baso # (0.0-0.1) K/mm3 Seg Neutrophils % (40.0-70.0) % Seg Neutrophils # (1.8-7.7) K/mm3 D-Dimer 207.05 (0-234) ng/mlDDU Sodium (137-145) mmol/L Potassium (3.6-5.0) mmol/L Chloride (98-107) mmol/L Carbon Dioxide (22-30) mmol/L Anion Gap mmol/L BUN (7-17) mg/dL Creatinine (0.7-1.2) mg/dL Estimated GFR ml/min BUN/Creatinine Ratio % Glucose (65-100) mg/dL Calcium (8.4-10.2) mg/dL Total Bilirubin (0.1-1.2) mg/dL Direct Bilirubin (0-0.2) mg/dL AST (5-40) units/L ALT (7-56) units/L Alkaline Phosphatase (35-129) units/L Troponin T < 0.010 (0.00-0.029) ng/mL Total Protein (6.3-8.2) g/dL Albumin (3.9-5) g/dL Albumin/Globulin Ratio % Lipase (13-60) units/L - EKG Data -: EKG Interpreted by Id EKG shows normal: sinus rhythm Rate: normal - Radiology Data Radiology results: report reviewed - Medical Decision Making Discussed results with patient Critical care attestation.: If time is entered above; I have spent that time in minutes in the direct care of this critically ill patient, excluding procedure time. ED Disposition Clinical Impression: Pleurisy, Chest pain, non-cardiac Disposition: TO HOME OR SELFCARE Is pt being admited?: No Does the pt Need Aspirin: No Condition: Stable Instructions: Chest Pain (ED) Additional Instructions: return if worse Referrals: PRIMARY CARE, [Referring] - 3-5 Days LORIN TERAN MD [Staff Physician] - 3-5 Days [facility] [Provider Group] - 3-5 Days [facility] [Provider Group] - 3-5 Days Time of Disposition: 11:07
[2019-04-02 07:51] LABS: Bilirubin,Direct < 0.2 mg/dL (0-0.2)
[2019-04-02 10:46] VITALS: BP 122/85
== END 2019-04-02 11:30 | disposition home or self-care (01) ==
LOC: ED 06:05
DX: R09.1 Pleurisy (principal); I10 Essential (primary) hypertension; E03.9 Hypothyroidism, unspecified; Z90.49 Acquired absence of other specified parts of digestive tract; Z88.5 Allergy status to narcotic agent; Z79.899 Other long term (current) drug therapy; Z79.1 Long term (current) use of non-steroidal anti-inflammatories (NSAID)
CPT/HCPCS: 36415; 71045; 80048; 80076; 83690; 84484; 85025; 85379; 93005; 93010; 99284; Q0162

== ENCOUNTER 2019-04-17 06:07 | Observation (INO) | payer MEDICAID ==
--- NOTE | 2019-04-16 11:49 | Anesthesia Consultation ---
Anesthesia Consult and Med Hx Date of service: 04/17/19 - Airway Anesthetic Teeth Evaluation: Partials ROM Head & Neck: Adequate Mental/Hyoid Distance: Adequate Mallampati Class: Class III Intubation Access Assessment: Possibly Difficult - Pulmonary Exam CTA: Yes - Cardiac Exam Cardiac Exam: RRR - Pre-Operative Health Status ASA Pre-Surgery Classification: ASA3 Proposed Anesthetic Plan: General Nerve Block: TAP - Pulmonary Hx Smoking: No Hx Asthma: Yes (hx nasal polyps and recent asthma dx; follows with nutritionalist) Hx Sleep Apnea: No - Cardiovascular System Hx Hypertension: Yes Hx Heart Attack/AMI: No (recent work up fo rnoncardiac chest pain; see EMR) Hx Percutaneous Transluminal Coronary Angioplasty (PTCA): No Hx Cardia Arrhythmia: Yes (occasional palpitations) Hx Heart Murmur: Yes - Central Nervous System Hx Seizures: Yes (last 2 months ago; takes keppra daily) Hx Psychiatric Problems: Yes (depression) - Gastrointestinal Hx Gastroesophageal Reflux Disease: Yes (well controlled) - Endocrine Hx Renal Disease: No Hx Liver Disease: No Hx Insulin Dependent Diabetes: No Hx Non-Insulin Dependent Diabetes: No Hx Thyroid Disease: No - Other Systems Hx Obesity: Yes (BMI 34) - Additional Comments Anesthesia Medical History Comments: No prior GA. No FHx anesthetic complications.
[2019-04-16 11:57] LABS: Basophils % (Auto) 0.6 % (0.0-1.8); Eosinophils # (Auto) 0.4 K/mm3 (0.0-0.4); Eosinophils % (Auto) 5.2 % (0.0-4.3); Hematocrit 37.9 % (30.3-42.9); Hemoglobin 12.7 gm/dl (10.1-14.3); Lymphocytes # (Auto) 2.7 K/mm3 (1.2-5.4); Lymphocytes % (Auto) 37.4 % (13.4-35.0); Mean Corpuscular HGB Conc 34 % (30-34); Mean Corpuscular Volume 79 fl (79-97); Monocytes # (Auto) 0.5 K/mm3 (0.0-0.8); Monocytes % (Auto) 7.2 % (0.0-7.3); Platelet Count 293 K/mm3 (140-440); Red Blood Count 4.77 M/mm3 (3.65-5.03); Red Cell Distribution Width 17.7 % (13.2-15.2)
[2019-04-16 12:19] LABS: BUN/Creatinine Ratio 10; Blood Urea Nitrogen 7 mg/dL (7-17); Calcium 8.6 mg/dL (8.4-10.2); Hemolysis Index 1
[~2019-04-17 06:07] MED LIST: LACTATED RINGERS 1,000 ML IV SCH; NEURONTIN PO NR; TRANSDERM-SCOP TD NR; VERSED IV NR
[2019-04-17] MEDS ORDERED: NACL BACTERIOSTATIC INFILTRATI ONE (06:40)
[2019-04-17] MEDS ORDERED: SUBLIMAZE IV NR (07:04)
[2019-04-17] MEDS ORDERED: DECADRON ONE (07:07)
[2019-04-17] MEDS ORDERED: MARCAINE-EPI 0.25%-1:200,000 INFILTRATI ONE (07:07)
--- NOTE | 2019-04-17 07:13 | Anesthesia Day of Surgery ---
Anesthesia Day of Surgery - Day of Surgery Patient Examined: Yes Patient H&P Reviewed: Yes Patient is NPO: Yes
[2019-04-17] MEDS ORDERED: DIPRIVAN 10 MG/ML IV ONE (07:20)
[2019-04-17] MEDS ORDERED: NEOSPORIN GU IR ONE ×2 (07:22→09:31)
[2019-04-17] MEDS ORDERED: ZEMURON IV ONE (07:22)
[2019-04-17] MEDS ORDERED: XYLOCAINE MPF 2% ONE (07:22)
--- NOTE | 2019-04-17 07:36 | History and Physical Report ---
History of Present Illness Date of examination: 04/17/19 Date of admission: 04/17/2019 Chief complaint: Dysfunctional uterine bleeding and uterine fibroids History of present illness: 48-year-old with a history of dysfunctional uterine bleeding and known uterine fibroids. Pelvic ultrasound was performed that revealed an enlarged uterus with a 3 cm fundal leiomyoma. The patient reports worsening of her vaginal bleeding and pain. The patient is still medical management and has elected to undergo definitive surgical management. Past History Past Medical History: hypertension, seizure, other (cervical dysplasia) Past Surgical History: cholecystectomy, other (LEEP; tubal ligation; uterine fibroid embolization) [employer] History: fibroids Social history: single - Obstetrical History : 7 Para: 5 Hx # Term Pregnancies: 5 Number of Pregnancies: 0 Spontaneous Abortions: 0 Induced : 2 Number of Living Children: 5 Medications and Allergies Allergies Allergy/AdvReac Type Severity Reaction Status Date / Time codeine Allergy Rash / Verified 04/10/19 17:14 VOMITING Home Medications Medication Instructions Recorded Confirmed Last Taken Type RX: hydroCHLOROthiazide [HCTZ] 25 mg PO QDAY #90 tablet 05/30/16 04/16/19 1 Day Ago Rx ~09/13/16 25 RX: Lisinopril [Zestril TAB] 40 mg PO DAILY 09/14/16 04/16/19 1 Day Ago History ~09/13/16 40 mg Doxepin [SINEquan] 25 mg PO QHS 04/16/19 04/16/19 Unknown History Escitalopram Oxalate [Lexapro] 20 mg PO DAILY 04/16/19 04/16/19 Unknown History Fluticasone [Flonase] 1 spray NS QDAY 04/16/19 04/16/19 Unknown History Lurasidone HCl [Latuda] 40 mg PO QDAY 04/16/19 04/16/19 Unknown History RX: Trazodone HCl 150 mg PO DAILY 04/16/19 04/16/19 Unknown History amLODIPine [Norvasc] 10 mg PO DAILY 04/16/19 04/16/19 Unknown History levETIRAcetam [Keppra TAB] 1,000 mg PO DAILY 04/16/19 04/16/19 Unknown History Active Meds: Active Medications Celecoxib (Celebrex) 200 mg PO PREOP NR Stop: 04/17/19 18:00 Fentanyl (Sublimaze) 100 mcg IV ONCE NR Stop: 04/17/19 13:00 Gabapentin (Neurontin) 300 mg PO PREOP NR Stop: 04/17/19 18:00 Hydromorphone HCl (Dilaudid) 0.5 mg IV Q10MIN PRN PRN Reason: Pain , Severe (7-10) Stop: 04/17/19 20:00 Lactated Ringer's (Lactated Ringers) 1,000 mls @ 100 mls/hr IV DIRECT MARU Cefazolin Sodium (Ancef/Sterile Water 2 Gm/20 Ml) 2 gm in 20 mls @ 80 mls/hr IV PREOP NR; Protocol Midazolam HCl (Versed) 2 mg IV PREOP NR Stop: 04/17/19 18:00 Scopolamine (Transderm-Scop) 1 each TD PREOP NR Stop: 04/17/19 23:59 Review of Systems All systems: negative Genitourinary: vaginal bleeding, pelvic pain - Vital Signs Vital signs: Vital Signs Temp Pulse Resp BP Pulse Ox 97.5 F L 78 20 180/98 100 04/16/19 11:00 04/16/19 11:00 04/16/19 11:00 04/16/19 11:00 04/16/19 11:00 Temp Pulse Resp BP Pulse Ox 97.5 F L 78 20 180/98 100 04/16/19 11:00 04/16/19 11:00 04/16/19 11:00 04/16/19 11:00 04/16/19 11:00 - Physical Exam Breasts: Positive: deferred Cardiovascular: Regular rate Lungs: Positive: Clear to auscultation Abdomen: Positive: normal appearance Results Result Diagrams: 04/16/19 11:10 04/16/19 11:10 Abnormal lab results 04/16/19 Range/Units 11:10 MCH 27 L (28-32) pg RDW 17.7 H (13.2-15.2) % Lymph % (Auto) 37.4 H (13.4-35.0) % Eos % (Auto) 5.2 H (0.0-4.3) % All other labs normal. Assessment and Plan - Patient Problems (1) Leiomyoma Current Visit: Yes Status: Acute Plan to address problem: Patient is scheduled for robotic hysterectomy (2) Dysfunctional uterine bleeding Current Visit: Yes Status: Acute
[2019-04-17] MEDS ORDERED: ANCEF/STERILE WATER 2 GM/20 ML 2 GM/20 ML SYRINGE IV NR (08:00)
[2019-04-17] MEDS ORDERED: TYLENOL PO PRN (09:17)
[2019-04-17] MEDS ORDERED: ZOFRAN IV PRN (09:17)
[2019-04-17] MEDS ORDERED: MORPHINE IV PRN (09:17)
--- NOTE | 2019-04-17 09:23 | Operative Report ---
Operative Report Operative Report: Date of surgery: 04/17/2019 Preoperative diagnoses: Leiomyoma; dysfunctional uterine bleeding Postoperative diagnoses: Same as above Procedure: Robotic hysterectomy; Bilateral salpingectomy Surgeon: Jacque Melo M.D. Data Administrator: Arabella Munroe Anesthesia: Gen. endotracheal anesthesia Estimated blood loss: 50 mL Pathology: Cervix, uterus, bilateral tubes Indication: 48-year-old with a history of symptomatic uterine fibroids and dysfunctional uterine bleeding. The patient elected to undergo definitive surgical management. Procedure: The patient was taken to the operating room and given general endotracheal anesthesia without complication. She is prepped and draped in a normal sterile fashion. A bivalve speculum was placed in the patient's vagina and a single- tooth tenaculum placed on the anterior lip of the cervix. The uterus was sounded with the uterine sound. A [employer] uterine manipulator was placed in the bivalve speculum was then removed. Attention was then turned to the patient's abdomen where a millimeter supra umbilical skin incision was then made. A Veress needle was placed and peritoneal entry was verified water-filled syringe. Insufflation of the peritoneal cavity was performed with CO2 gas. The 12 mm trocar was then placed under direct visualization. An additional 8 mm trocar was placed on the patient's left and right lateral side just opposite of the supraumbilical trocar. An additional 5 mm right lateral trocar was then placed as the accessory port. In the supraumbilical 12 mm trocar site, the Haider Cary device was used to place 0 vicryl suture that was secured with a hemostat. The patient was then placed in steep Trendelenburg. General survey [default value]. The da [employer] robot was then engaged. A fenestrated forcep was placed in arm 2 and a vessel sealer was placed in arm 1. The surgeon then transferred to the surgical console. The mesosalpinx was then isolated on the right. The vessel sealer was used to coagulate the mesosalpinx which was then transected. The tube was transected from the ovary. The tubo-ovarian ligament was then coagulated and transected. The round ligament was then coagulated and transected also. The vesicouterine peritoneum was then entered from the patient's right side. The uterine vessels were then coagulated with the vessel sealer. The vessels were then transected . Attention was then turned to the patient's left side where the tubo-ovarian ligament and mesosalpinx were again isolated coagulated and transected. The vesical peritoneum was then entered from the left and joined in the midline. Peritoneum was reflected off of the lower uterine segment. Uterine vessels were then coagulated and then transected. The blood supply to the uterus was adequately contained, a posterior colpotomy was made. The V care ring was visualized. Posterior colpotomy was created with the monopolar scissors. The incision was continued circumferentially until anterior colpotomy was made. The cervix and uterus were amputated from the vaginal cuff. The uterus was then removed along with the tubes bilaterally through the vagina and a warm laparotomy sponge was placed and maintain the pneumoperitoneum. The vaginal cuff was then closed in a running fashion with V lock suture. Irrigation of the pelvis was performed. Hemoblast was applied to the incision. The skin was then reapproximated with 4-0 Monocryl. The tissue was sent to pathology which included the cervix, uterus and tubes. The patient was then successfully extubated. She was then taken to the recovery room in stable condition. All sponge laps and needle counts were correct x2.
[2019-04-17] MEDS ORDERED: BLOXIVERZ ONE (09:28)
[2019-04-17] MEDS ORDERED: ROBINUL ONE (09:28)
[2019-04-17] MEDS ORDERED: ZOFRAN ONE (09:28)
[2019-04-17] MEDS ORDERED: NACL 0.9% IR ONE ×2 (09:32)
[2019-04-17] MEDS ORDERED: NORMODYNE IV PRN (09:49)
[2019-04-17] MEDS ORDERED: PROAIR IH ONE (09:59)
[2019-04-17] MEDS: APRESOLINE IV PRN ×2 (10:00→17:51)
[2019-04-17] MEDS ORDERED: D5LR 1,000 ML IV SCH (10:00)
[2019-04-17] MEDS: DILAUDID IV PRN ×2 (10:22→10:30)
--- NOTE | 2019-04-17 11:45 | Post Anesthesia Evaluation ---
- Post Anesthesia Evaluation Patient Participated: Yes Airway Patent: Yes Stable Respiratory Function: Yes Nausea/Vomiting: No Temp > 96.8F: Yes Pain Manageable: Yes Adequeate Hydration: Yes Anesthesia Complications: No
[2019-04-17] MEDS: IBUPROFEN PO PRN (14:45)
[2019-04-17] MEDS: PERCOCET 5/325 PO PRN (20:29)
[2019-04-17] MEDS ORDERED: AMBIEN PO PRN (22:00)
[2019-04-18 02:49] LABS: Hematocrit 35.8 % (30.3-42.9); Hemoglobin 11.4 gm/dl (10.1-14.3)
[2019-04-18] MEDS: PERCOCET 5/325 PO PRN ×2 (04:29→21:37)
[2019-04-18] MEDS: IBUPROFEN PO PRN (10:23)
--- NOTE | 2019-04-18 11:12 | Progress Note ---
Assessment and Plan - Patient Problems (1) Leiomyoma Current Visit: Yes Status: Acute Plan to address problem: Patient doing well Patient can be discharged when she is able to void (2) Dysfunctional uterine bleeding Current Visit: Yes Status: Acute Subjective - Subjective Date of service: 04/18/19 Interval history: Patient reports feeling well. Her Brice was removed this morning however she has not voided yet. She is tolerating a regular diet without complication. Patient reports: appetite normal, pain well controlled Objective - Vital Signs Latest vital signs: Vital Signs Temp Pulse Pulse Resp Resp BP BP 04/18/19 08:23 98.3 F 74 18 116/68 04/18/19 05:03 92 H 04/18/19 04:29 18 04/18/19 04:25 98.1 F 20 115/56 04/18/19 01:23 99 H 04/18/19 00:26 98.6 F 20 137/78 04/17/19 20:53 107 H 04/17/19 20:30 18 04/17/19 20:29 18 04/17/19 19:54 98.9 F 18 04/17/19 19:52 139/78 04/17/19 19:45 104 H 18 04/17/19 16:09 98.0 F 108 H 20 161/91 04/17/19 12:00 04/17/19 11:56 101 H 04/17/19 11:54 97.3 F L 100 H 14 148/88 04/17/19 11:30 97.2 F L 101 H 14 129/77 04/17/19 11:15 103 H 14 130/78 Pulse Ox 04/18/19 08:23 04/18/19 05:03 98 04/18/19 04:29 04/18/19 04:25 04/18/19 01:23 99 04/18/19 00:26 04/17/19 20:53 99 04/17/19 20:30 04/17/19 20:29 04/17/19 19:54 04/17/19 19:52 04/17/19 19:45 04/17/19 16:09 100 04/17/19 12:00 100 04/17/19 11:56 100 04/17/19 11:54 100 04/17/19 11:30 100 04/17/19 11:15 100 Intake and Output 04/17/19 04/18/19 04/18/19 22:59 06:59 14:59 Intake Total 120 360 480 Output Total 850 700 Balance -730 -340 480 Intake: Oral 120 360 480 Output: Urine 850 700 Indwelling Catheter 850 700 Other: Total, Intake Amount 120 360 480 Total, Output Amount 850 700 Voiding Method Indwelling Catheter - Exam Abdomen: Present: normal appearance, soft
--- NOTE | 2019-04-18 11:14 | Discharge Summary ---
Providers - Providers Date of Admission: 04/17/19 09:17 Date of discharge: 04/18/19 Attending physician: DHIRAJ AGUILAR Primary care physician: MARIELY GARCIA Hospitalization Reason for admission: other (dysfunctional uterine bleeding) Procedure: other (robotic hysterectomy and bilateral salpingectomy) Incision: normal Discharge diagnosis: other (dysfunctional uterine bleeding) Hospital course: The patient was admitted the day of surgery underwent a robotic hysterectomy. Please see operative note for details of surgery. Postoperative course was uneventful. Condition at discharge: Good Disposition: [id number] TO HOME OR SELFCARE - Discharge Diagnoses (1) Leiomyoma Status: Acute (2) Dysfunctional uterine bleeding Status: Acute Plan - Discharge Medications Prescriptions: Ibuprofen [Motrin] 800 mg PO Q8HR PRN #60 tablet PRN Reason: Pain, Mild (1-3) oxyCODONE /ACETAMINOPHEN [Percocet 5/325] 1 tab PO Q6HR PRN #30 tablet PRN Reason: Pain - Provider Discharge Summary Activity: no sex for 6 weeks, no heavy lifting 4 weeks, no strenuous exercise Diet: routine Instructions: routine Additional instructions: [] Smoking cessation referral if applicable(refer to patient education folder for contact #) [] Refer to [facility]'s [facility] Booklet Call your doctor immediately for: * Fever > 100.5 * Heavy vaginal bleeding ( >1 pad per hour) * Severe persistent headache * Shortness of breath * Reddened, hot, painful area to leg or breast * Drainage or odor from incision. * Keep incision clean and dry at all times and follow doctor's instructions regarding bathing/showering Schedule follow up with Dr. Aguilar in 4 weeks - Follow up plan
[2019-04-19] MEDS: PERCOCET 5/325 PO PRN ×2 (01:37→05:40)
--- NOTE | 2019-04-19 08:25 | Event Note ---
Date: 04/19/19 Patient reports being able to void without difficulty. Patient will be discharged.
[2019-04-19 12:26] VITALS: BP 138/85
== END 2019-04-19 12:30 | disposition home or self-care (01) ==
LOC: OR 06:07 → OB 09:17
PROVIDERS: ADMIT Obstetrics & Gynecology; ATTEND Obstetrics & Gynecology
DX: D25.9 Leiomyoma of uterus, unspecified (principal); N93.8 Other specified abnormal uterine and vaginal bleeding; I10 Essential (primary) hypertension; R56.9 Unspecified convulsions
CPT/HCPCS: 36415; 58571; 64450; 80048; 84703; 85014; 85018; 85025; 86850; 86900; 86901; 88302; 88307; 96374; 96375; 96376; A4217; G0378; J0360; J0690; J1100; J1170; J2250; J2405; J2704; J2710; J3010; J7120; J7121; S2900

== ENCOUNTER 2019-05-06 22:42 | Emergency (ER) | payer MEDICAID, OTHER ==
[2019-05-06] MEDS ORDERED: ASPIRIN PO ONE (23:29)
[2019-05-07 00:05] LABS: Basophils # (Auto) 0.1 K/mm3 (0.0-0.1); Basophils % (Auto) 0.9 % (0.0-1.8); Eosinophils # (Auto) 0.4 K/mm3 (0.0-0.4); Eosinophils % (Auto) 3.5 % (0.0-4.3); Hematocrit 39.9 % (30.3-42.9); Hemoglobin 13.1 gm/dl (10.1-14.3); Lymphocytes # (Auto) 4.2 K/mm3 (1.2-5.4); Lymphocytes % (Auto) 40.8 % (13.4-35.0); Mean Corpuscular HGB Conc 33 % (30-34); Mean Corpuscular Volume 81 fl (79-97); Monocytes # (Auto) 1.1 K/mm3 (0.0-0.8); Monocytes % (Auto) 10.4 % (0.0-7.3); Platelet Count 340 K/mm3 (140-440); Red Blood Count 4.94 M/mm3 (3.65-5.03); Red Cell Distribution Width 16.9 % (13.2-15.2)
[2019-05-07 00:19] LABS: BUN/Creatinine Ratio 17; Blood Urea Nitrogen 15 mg/dL (7-17); Calcium 8.3 mg/dL (8.4-10.2); Hemolysis Index 5
[2019-05-07] MEDS ORDERED: NACL 0.9% 1000 ML 1,000 ML IV ONE (00:43)
[2019-05-07] MEDS ORDERED: ZOFRAN IV ONE (00:43)
--- NOTE | 2019-05-07 01:10 | Emergency Department Report ---
HPI - General Chief Complaint: Abdominal Pain Time Seen by Provider: 05/07/19 00:35 - HPI HPI: Room 18 The patient is a 48-year-old female presenting with a chief complaint of palpitations diarrhea fatigue. The patient states for the past 2-3 days she's had intermittent palpitations. The patient states today she developed diarrhea with 4 separate episodes. Patient states she's been feeling "bad." When asked what this means patient states she's been feeling fatigued. The patient states she was diagnosed with a "pelvic infection" and completed her antibiotics (metronidazole) 2 days ago.. Patient missed nausea but denies vomiting. Patient states she had a hysterectomy last month and she has only had appropriate postoperative pain as it has not worsened and there've been no new events. 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 fibroids. enlarged uterus. abnormal EKG - Surgical History Past Surgical History?: Yes Hx Cholecystectomy: Yes Additional Surgical History: leep at 01/17/2018. hyster 04/17/19 - Family History Family history: no significant - Social History Smoking Status: Never Smoker Substance Use Type: None (denies illicit drug use), Alcohol (occasional) - Medications Home Medications: Home Medications Medication Instructions Recorded Confirmed Last Taken Type hydroCHLOROthiazide [HCTZ] 25 mg PO QDAY #90 tablet 05/30/16 04/16/19 04/16/19 Rx Lisinopril [Zestril TAB] 40 mg PO DAILY 09/14/16 04/16/19 04/16/19 History Doxepin [SINEquan] 25 mg PO QHS 04/16/19 04/16/19 04/16/19 History Escitalopram Oxalate [Lexapro] 20 mg PO DAILY 04/16/19 04/16/19 04/16/19 History Fluticasone [Flonase] 1 spray NS QDAY 0904/16/19 04/16/19 History Lurasidone HCl [Latuda] 40 mg PO QDAY 04/16/19 04/16/19 04/16/19 History Trazodone HCl 150 mg PO DAILY 04/16/19 04/16/19 04/16/19 History amLODIPine [Norvasc] 10 mg PO DAILY 04/16/19 04/16/19 04/17/19 05:30 History levETIRAcetam [Keppra TAB] 1,000 mg PO DAILY 04/16/19 04/16/19 04/17/19 05:30 History Ibuprofen [Motrin] 800 mg PO Q8HR PRN #60 tablet 04/18/19 Unknown Rx oxyCODONE /ACETAMINOPHEN [Percocet 1 tab PO Q6HR PRN #30 tablet 04/18/19 Unknown Rx 5/325] Diphenoxylate/Atropine [Lomotil] 2 tab PO QID PRN #10 tablet 05/07/19 Unknown Rx Ondansetron [Zofran ODT TAB] 8 mg PO Q8HR #20 tab.rapdis 05/07/19 Unknown Rx ED Review of Systems ROS: Stated complaint: ABD PAIN/ELEVATED HEART RATE Other details as noted in HPI Constitutional: malaise Eyes: denies: eye pain ENT: denies: throat pain Respiratory: no symptoms reported Cardiovascular: palpitations. denies: chest pain Endocrine: no symptoms reported Gastrointestinal: nausea, diarrhea. denies: abdominal pain, vomiting Genitourinary: denies: dysuria Musculoskeletal: denies: back pain Neurological: headache Physical Exam - Physical Exam Vital Signs: Vital Signs 05/06/19 05/07/19 22:55 00:34 Temperature 98.2 F 98.2 F Pulse Rate 103 H 82 Respiratory 16 16 Rate Blood Pressure 164/107 Blood Pressure 162/98 [Right] O2 Sat by Pulse 98 97 Oximetry Physical Exam: GENERAL: The patient is well-developed well-nourished female lying on stretcher not appearing to be in acute distress. [] HEENT: Normocephalic. Atraumatic. Extraocular motions are intact. Patient has moist mucous membranes. NECK: Supple. Trachea midline CHEST/LUNGS: Clear to auscultation. There is no respiratory distress noted. HEART/CARDIOVASCULAR: Regular. There is no tachycardia. There is no gallop rub or murmur. ABDOMEN: Abdomen is soft, nontender. Patient has normal bowel sounds. There is no abdominal distention. Surgical sites clean dry and intact SKIN: There is no rash. There is no edema. There is no diaphoresis. NEURO: The patient is awake, alert, and oriented. The patient is cooperative. The patient has no focal neurologic deficits. The patient has normal speech MUSCULOSKELETAL: There is no evidence of acute injury. ED Course Vital Signs 05/06/19 05/07/19 22:55 00:34 Temperature 98.2 F 98.2 F Pulse Rate 103 H 82 Respiratory 16 16 Rate Blood Pressure 164/107 Blood Pressure 162/98 [Right] O2 Sat by Pulse 98 97 Oximetry ED Medical Decision Making - Lab Data Result diagrams: 05/06/19 23:39 05/06/19 23:39 Laboratory Tests 05/06/19 05/06/19 05/07/19 23:39 23:39 00:48 WBC 10.2 RBC 4.94 Hgb 13.1 Hct 39.9 MCV 81 MCH 27 L MCHC 33 RDW 16.9 H Plt Count 340 Lymph % (Auto) 40.8 H [place] % (Auto) 10.4 H Eos % (Auto) 3.5 Baso % (Auto) 0.9 Lymph # 4.2 [place] # 1.1 H Eos # 0.4 Baso # 0.1 Seg Neutrophils % 44.4 Seg Neutrophils # 4.5 Sodium 140 Potassium 4.0 Chloride 103.2 Carbon Dioxide 26 Anion Gap 15 BUN 15 Creatinine 0.9 Estimated GFR > 60 BUN/Creatinine Ratio 17 Glucose 95 Calcium 8.3 L Magnesium 1.90 Troponin T < 0.010 TSH Free T4 Urine Color Urine Turbidity Urine pH Ur Specific [place] Urine Protein Urine Glucose (UA) Urine Ketones Urine Blood Urine Nitrite Urine Bilirubin Urine Urobilinogen Ur Leukocyte Esterase Urine WBC (Auto) Urine RBC (Auto) U Epithel Cells (Auto) Urine Mucus 05/07/19 05/07/19 05/07/19 00:48 00:58 01:58 WBC RBC Hgb Hct MCV MCH MCHC RDW Plt Count Lymph % (Auto) [place] % (Auto) Eos % (Auto) Baso % (Auto) Lymph # [place] # Eos # Baso # Seg Neutrophils % Seg Neutrophils # Sodium Potassium Chloride Carbon Dioxide Anion Gap BUN Creatinine Estimated GFR BUN/Creatinine Ratio Glucose Calcium Magnesium Troponin T < 0.010 TSH 6.610 H Free T4 1.79 H Urine Color Yellow Urine Turbidity Slightly-cloudy Urine pH 5.0 Ur Specific [place] 1.030 Urine Protein <15 mg/dl Urine Glucose (UA) Neg Urine Ketones Neg Urine Blood Neg Urine Nitrite Neg Urine Bilirubin Neg Urine Urobilinogen < 2.0 Ur Leukocyte Esterase Sm Urine WBC (Auto) 4.0 Urine RBC (Auto) 3.0 U Epithel Cells (Auto) 1.0 Urine Mucus 3+ - EKG Data -: EKG Interpreted by Oh EKG shows normal: sinus rhythm Rate: normal - EKG Data When compared to previous EKG there are: previous EKG unavailable Interpretation: nonspecific ST-T wave katrin (flat T-wave in lead aVL) - Radiology Data Radiology results: report reviewed (CT head), image reviewed (CT head) [facility] [address] [place] [address] Cat Scan Report Signed Patient: ANJELICA YIP MR#: [id number] : 1970 Acct:[id number] Age/Sex: 48 / F ADM Date: 05/06/19 Loc: ED Attending Dr: Ordering Physician: SEAN ODONNELL MD Date of Service: 05/07/19 Procedure(s): CT head/brain wo con Accession Number(s): [id number] cc: SEAN ODONNELL MD CT head/brain wo con INDICATION / CLINICAL INFORMATION: headache, nausea. TECHNIQUE: All CT scans at this location are performed using CT dose reduction for ALARA by means of automated exposure control. COMPARISON: 12/13/2018 . FINDINGS: No intracranial hemorrhage. No abnormal extra-axial fluid collection. The ventricular system and basilar cisterns are normal. No mass effect. There is almost complete opacification of the sphenoid sinus with bilateral ethmoid mucosal sinus thickening. The previous maxillary sinus disease has improved. No bony abnormalities. IMPRESSION: 1. Sphenoid and ethmoid sinusitis. 2. No intracranial abnormality. Signer Name: Beck Fair MD Signed: 05/07/2019 2:08 AM Workstation Name: [id number] Transcribed By: TANK Dictated By: Beck Fair MD Electronically Authenticated By: Beck W. Fair, MD Signed Date/Time: 05/07/19207 DD/ 4 TD/TT: - Differential Diagnosis anxiety, dysrhythmia, hypothyroidism, hyperthyroidism, diarrhea, dehydratio Critical care attestation.: If time is entered above; I have spent that time in minutes in the direct care of this critically ill patient, excluding procedure time. ED Disposition Clinical Impression: Hyperthyroidism, Nausea, Diarrhea Disposition: - TO HOME OR SELFCARE Is pt being admited?: No Does the pt Need Aspirin: No Condition: Stable Instructions: Abdominal Pain (ED), Hyperthyroidism (ED) Prescriptions: Diphenoxylate/Atropine [Lomotil] 2 tab PO QID PRN #10 tablet PRN Reason: Diarrhea Ondansetron [Zofran ODT TAB] 8 mg PO Q8HR #20 tab.dorothy Referrals: PRIMARY MD SOLO [Primary Care Provider] - 3-5 Days JURGEN COLUNGA MD [Referring] - 3-5 Days (Dr. Colunga is an heel packer. Please follow up with him for further evaluation) Time of Disposition: 02:57
[2019-05-07 01:30] LABS: Bilirubin,Urine NEG (Negative); Blood,Urine NEG (Negative); Color,Urine Yellow (Yellow); Mucus,Urine 3+ /HPF; Protein,Urine <15 mg/dL mg/dL (Negative); Urobilinogen,Urine < 2.0 mg/dL (<2.0)
[2019-05-07 01:34] LABS: Free T4 (Free Thyroxine) 1.79 ng/dL (0.76-1.46)
--- NOTE | 2019-05-07 02:12 | Cat Scan Report ---
CT head/brain wo con INDICATION / CLINICAL INFORMATION: headache, nausea. TECHNIQUE: All CT scans at this location are performed using CT dose reduction for ALARA by means of automated e xposure control. COMPARISON: 12/13/2018 . FINDINGS: No intracranial hemorrhage. No abnormal extra-axial fluid collection. The ventricular system and basilar cisterns are normal. No mass effect. There is almost complete opacification of the sphenoid sinus with bilateral ethmoid mucosal sinus thi ckening. The previous maxillary sinus disease has improved. No bony abnormalities. IMPRESSION: 1. Sphenoid and ethmoid sinusitis. 2. No intracranial abnormality. Signer Name: Beck Fair MD Signed: 05/07/2019 2:08 AM Workstation Name: [email or web address][id number]
[2019-05-07 03:10] VITALS: BP 160/89
== END 2019-05-07 03:11 | disposition home or self-care (01) ==
LOC: ED 22:42
DX: R19.7 Diarrhea, unspecified (principal); E05.90 Thyrotoxicosis, unspecified without thyrotoxic crisis or storm; R00.2 Palpitations; R11.0 Nausea; I10 Essential (primary) hypertension; G43.909 Migraine, unspecified, not intractable, without status migrainosus; Z86.718 Personal history of other venous thrombosis and embolism; Z90.49 Acquired absence of other specified parts of digestive tract; Z79.899 Other long term (current) drug therapy; Z90.710 Acquired absence of both cervix and uterus; Z98.890 Other specified postprocedural states; Z88.5 Allergy status to narcotic agent
CPT/HCPCS: 36415; 70450; 80048; 81001; 83735; 84439; 84443; 84484; 85025; 93005; 93010; 96361; 96374; 99284; J2405; J7030

== ENCOUNTER 2019-05-25 09:21 | Outpatient (CLI) | payer MEDICAID ==
[2019-05-25 12:20] LABS: Free T4 (Free Thyroxine) 1.29 ng/dL (0.76-1.46)
== END 2019-05-25 09:22 | disposition home or self-care (01) ==
LOC: LAB 09:21
PROVIDERS: ATTEND Internal Medicine
DX: R94.6 Abnormal results of thyroid function studies (principal); I10 Essential (primary) hypertension
CPT/HCPCS: 36415; 84439; 84443

== ENCOUNTER 2019-06-12 14:24 | Outpatient (CLI) | payer MEDICAID | END 2019-06-12 14:25 | disposition home or self-care (01) | LOC: LAB 14:24 | PROVIDERS: ATTEND Internal Medicine | DX: M33.10 Other dermatomyositis, organ involvement unspecified (principal) | CPT/HCPCS: 36415; 82550; 85652 ==

== ENCOUNTER 2019-08-08 18:35 | Emergency (ER) | payer MEDICAID, OTHER ==
--- NOTE | 2019-08-08 20:04 | Emergency Department Report ---
Blank Doc - Documentation Documentation: 48-year-old female that presents with headache, left eye pain and nausea. HX of headaches. Denies any head trauma or injuries. This initial assessment/diagnostic orders/clinical plan/treatment(s) is/are subject to change based on patient's health status, clinical progression and re- assessment by fellow clinical providers in the ED. Further treatment and workup at subsequent clinical providers discretion. Patient/guardians urged not to elope from the ED as their condition may be serious if not clinically assessed and managed. Initial orders include: 1- Patient sent to [facility] for further evaluation and treatment
[2019-08-08 21:30] LABS: Basophils # (Auto) 0.1 K/mm3 (0.0-0.1); Basophils % (Auto) 1.6 % (0.0-1.8); Eosinophils # (Auto) 0.4 K/mm3 (0.0-0.4); Eosinophils % (Auto) 3.9 % (0.0-4.3); Hemoglobin 13.1 gm/dl (10.1-14.3); Lymphocytes # (Auto) 3.3 K/mm3 (1.2-5.4); Mean Corpuscular HGB Conc 33 % (30-34); Mean Corpuscular Volume 82 fl (79-97); Monocytes # (Auto) 0.8 K/mm3 (0.0-0.8); Monocytes % (Auto) 8.8 % (0.0-7.3); Platelet Count 294 K/mm3 (140-440); Red Cell Distribution Width 15.8 % (13.2-15.2)
[2019-08-08 21:52] LABS: Alanine Aminotransferase 7 units/L (7-56); Albumin 3.6 g/dL (3.9-5); BUN/Creatinine Ratio 10; Blood Urea Nitrogen 9 mg/dL (7-17); Calcium 8.6 mg/dL (8.4-10.2); Hemolysis Index 26
[2019-08-08] MEDS ORDERED: dexAMETHasone 20 MG/5 ML VIAL IV ONE (22:01)
[2019-08-08] MEDS ORDERED: METOCLOPRAMIDE 10 MG/2 ML INJ IV ONE (22:01)
[2019-08-08] MEDS ORDERED: KETOROLAC 30 MG/1 ML INJ IV ONE (22:01)
--- NOTE | 2019-08-08 22:06 | Emergency Department Report ---
ED General Adult HPI - General Chief complaint: Headache Stated complaint: HEADACHE/PELVIC PAIN/ABD PAIN Time Seen by Provider: 08/08/19 20:03 Source: patient Mode of arrival: Ambulatory Limitations: No Limitations - History of Present Illness Initial comments: 48-year-old -[place] female with a past medical history of hypertension, cervical cancer, depression, anxiety, seizure disorder, prediabetes presents to the emergency room complaining of a headache behind her left eye that is intermittent times one week patient also reports nausea times one day and abdominal pain that's been intermittent times one week with diarrhea. Patient reports that the patient pelvic pain is sharp and intermittent nothing makes it worse nothing makes it better. Patient does admit to discharge. Last menstrual period patient had a hysterectomy in Onset/Timin -: days(s) Location: pelvis Radiation: non-radiation Severity scale (0 -10): 8 Quality: sharp Consistency: intermittent Improves with: none Worsens with: none Associated Symptoms: headaches, nausea/vomiting Treatments Prior to Arrival: none - Related Data Home Medications Medication Instructions Recorded Confirmed Last Taken lisinopriL [Zestril TAB] 40 mg PO DAILY 09/14/16 04/16/19 04/16/19 Doxepin [SINEquan] 25 mg PO QHS 04/16/19 04/16/19 04/16/19 Escitalopram Oxalate [Lexapro] 20 mg PO DAILY 04/16/19 04/16/19 04/16/19 Fluticasone [Flonase] 1 spray NS QDAY 04/16/19 04/16/19 04/16/19 Lurasidone HCl [Latuda] 40 mg PO QDAY 04/16/19 04/16/19 04/16/19 Trazodone HCl 150 mg PO DAILY 04/16/19 04/16/19 04/16/19 amLODIPine [Norvasc] 10 mg PO DAILY 04/16/19 04/16/19 04/17/19 05:30 levETIRAcetam [Keppra TAB] 1,000 mg PO DAILY 04/16/19 04/16/19 04/17/19 05:30 Previous Rx's Medication Instructions Recorded Last Taken Type hydroCHLOROthiazide [HCTZ] 25 mg PO QDAY #90 tablet 05/30/16 04/16/19 Rx Ibuprofen [Motrin] 800 mg PO Q8HR PRN #60 tablet 04/18/19 Unknown Rx oxyCODONE /ACETAMINOPHEN [Percocet 1 tab PO Q6HR PRN #30 tablet 04/18/19 Unknown Rx 5/325] Diphenoxylate/Atropine [Lomotil] 2 tab PO QID PRN #10 tablet 05/07/19 Unknown Rx Ondansetron [Zofran ODT TAB] 8 mg PO Q8HR #20 tab.rapdis 05/07/19 Unknown Rx metroNIDAZOLE [Flagyl] 500 mg PO Q12HR #14 tab 08/09/19 Unknown Rx Allergies Allergy/AdvReac Type Severity Reaction Status Date / Time codeine Allergy Rash / Verified 08/08/19 20:04 VOMITING ED Review of Systems ROS: Stated complaint: HEADACHE/PELVIC PAIN/ABD PAIN Other details as noted in HPI Comment: All other systems reviewed and negative ED Past Medical Hx - Past Medical History Previous Medical History?: Yes Hx Hypertension: Yes Hx Heart Attack/AMI: No (recent work up fo rnoncardiac chest pain; see EMR) Hx Congestive Heart Failure: No Hx Diabetes: No Hx Deep Vein Thrombosis: Yes Hx GERD: Yes Hx Liver Disease: No Hx Renal Disease: No Hx Headaches / Migraines: Yes (Migraines) Hx Seizures: Yes (last 2 months ago; takes keppra daily) Hx Asthma: Yes (hx nasal polyps and recent asthma dx; 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 fibroids. enlarged uterus. abnormal EKG - Surgical History Past Surgical History?: Yes Hx Cholecystectomy: Yes Additional Surgical History: leep at 01/17/2018. hyster 04/17/19 - Social History Smoking Status: Never Smoker Substance Use Type: None - Medications Home Medications: Home Medications Medication Instructions Recorded Confirmed Last Taken Type hydroCHLOROthiazide [HCTZ] 25 mg PO QDAY #90 tablet 05/30/16 04/16/19 04/16/19 Rx lisinopriL [Zestril TAB] 40 mg PO DAILY 09/14/16 04/16/19 04/16/19 History Doxepin [SINEquan] 25 mg PO QHS 04/16/19 04/16/19 04/16/19 History Escitalopram Oxalate [Lexapro] 20 mg PO DAILY 09/04/16/19 04/16/19 History Fluticasone [Flonase] 1 spray NS QDAY 04/16/19 04/16/19 04/16/19 History Lurasidone HCl [Latuda] 40 mg PO QDAY 04/16/19 04/16/19 04/16/19 History Trazodone HCl 150 mg PO DAILY 04/16/19 04/16/19 04/16/19 History amLODIPine [Norvasc] 10 mg PO DAILY 04/16/19 04/16/19 04/17/19 05:30 History levETIRAcetam [Keppra TAB] 1,000 mg PO DAILY 04/16/19 04/16/19 04/17/19 05:30 History Ibuprofen [Motrin] 800 mg PO Q8HR PRN #60 tablet 04/18/19 Unknown Rx oxyCODONE /ACETAMINOPHEN [Percocet 1 tab PO Q6HR PRN #30 tablet 04/18/19 Unknown Rx 5/325] Diphenoxylate/Atropine [Lomotil] 2 tab PO QID PRN #10 tablet 05/07/19 Unknown Rx Ondansetron [Zofran ODT TAB] 8 mg PO Q8HR #20 tab.rapdis 05/07/19 Unknown Rx metroNIDAZOLE [Flagyl] 500 mg PO Q12HR #14 tab 08/09/19 Unknown Rx ED Physical Exam - General Limitations: No Limitations General appearance: alert, in no apparent distress - Head Head exam: Present: atraumatic, normocephalic - Eye Eye exam: Present: normal appearance - ENT ENT exam: Present: mucous membranes moist - Neck Neck exam: Present: normal inspection - Respiratory Respiratory exam: Present: normal lung sounds bilaterally. Absent: respiratory distress - Cardiovascular Cardiovascular Exam: Present: regular rate, normal rhythm. Absent: systolic murmur, diastolic murmur, rubs, gallop - GI/Abdominal GI/Abdominal exam: Present: soft, normal bowel sounds - Neurological Exam Neurological exam: Present: alert, oriented X3, normal gait - Expanded Neurological Exam Expanded Cranial nerves: EOM's Intact: Normal, Gag Reflex: Normal, Tongue Deviation: Normal, Nystagmus: Normal, Facial Sensation: Normal, Facial Palsy with Forehead Movement: Normal, Facial Palsy without Forehead Movement: Normal Cerebellar function: Finger to Nose: Normal, Heel to Tavares: Normal, Romberg: Normal Upper motor neuron: Kurt Neglect: Normal, Pronator Drift: Normal, Sensory Extinction: Normal Sensory exam: Upper Extremity Light Touch: Normal, Upper Extremity Pin Prick: Normal, Upper Extremity Temperature: Normal, UE 2 Point Discrimination: Normal, Lower Extremity Light Touch: Normal, Lower Extremity Pin Prick: Normal, Lower Extremity Temperature: Normal, LE 2 Point Discrimination: Normal Motor strength exam: RUE: 4, LUE: 4, RLE: 4, LLE: 4 Best Eye Response (Andreas): (4) open spontaneously Best Motor Response (Andreas): (6) obeys commands Best Verbal Response (Andreas): (5) oriented Andreas Total: 15 - Psychiatric Psychiatric exam: Present: normal affect, normal mood - Skin Skin exam: Present: warm, dry, intact, normal color. Absent: rash ED Course Vital Signs 08/08/19 18:39 Temperature 98.3 F Pulse Rate 89 Respiratory 16 Rate Blood Pressure 192/94 O2 Sat by Pulse 97 Oximetry - Reevaluation(s) Reevaluation #1: 08/08/19 23:25 Patient reports that she feels much better after having medications. Patient reports her abdominal pain has resolved and her headache has resolved. ED Medical Decision Making - Lab Data Result diagrams: 08/08/19 21:13 08/08/19 21:13 Laboratory Tests 08/08/19 08/08/19 08/08/19 21:13 21:13 Unknown WBC 9.1 RBC 4.90 Hgb 13.1 Hct 40.0 MCV 82 MCH 27 L MCHC 33 RDW 15.8 H Plt Count 294 Lymph % (Auto) 36.0 H [place] % (Auto) 8.8 H Eos % (Auto) 3.9 Baso % (Auto) 1.6 Lymph # 3.3 [place] # 0.8 Eos # 0.4 Baso # 0.1 Seg Neutrophils % 49.7 Seg Neutrophils # 4.5 Sodium 136 L Potassium 3.8 Chloride 101.4 Carbon Dioxide 23 Anion Gap 15 BUN 9 Creatinine 0.9 Estimated GFR > 60 BUN/Creatinine Ratio 10 Glucose 93 Calcium 8.6 Total Bilirubin 0.40 AST 11 ALT 7 Alkaline Phosphatase 79 Total Protein 6.8 Albumin 3.6 L Albumin/Globulin Ratio 1.1 Urine Color Yellow Urine Turbidity Slightly-cloudy Urine pH 6.0 Ur Specific [place] 1.025 Urine Protein 30 mg/dl Urine Glucose (UA) Neg Urine Ketones Neg Urine Blood Neg Urine Nitrite Neg Urine Bilirubin Neg Urine Urobilinogen 2.0 Ur Leukocyte Esterase Neg Urine WBC (Auto) 1.0 Urine RBC (Auto) < 1.0 U Epithel Cells (Auto) 2.0 Urine Bacteria (Auto) 1+ Urine Mucus 3+ - Medical Decision Making 48-year-old -[place] female with a past medical history of hypertension, cervical cancer, depression, anxiety, seizure disorder, prediabetes presents to the emergency room complaining of a headache behind her left eye that is intermittent times one week patient also reports nausea times one day and abdominal pain that's been intermittent times one week with diarrhea. Patient reports that the patient pelvic pain is sharp and intermittent nothing makes it worse nothing makes it better. Patient does admit to discharge. Last menstrual period patient had a hysterectomy in March.2018 IV, Benadryl, Toradol, Reglan. Wet prep Chlamydia and gonorrhea and urinalysis is been sent. Critical care attestation.: If time is entered above; I have spent that time in minutes in the direct care of this critically ill patient, excluding procedure time. ED Disposition Clinical Impression: Pelvic pain, Bacterial vaginitis Head ache Qualifiers: Headache type: unspecified Headache chronicity pattern: acute headache Intractability: intractable Qualified Code(s): R51 - Headache Disposition: DC-01 TO HOME OR SELFCARE Is pt being admited?: No Does the pt Need Aspirin: No Condition: Stable Instructions: Bacterial Vaginosis (ED) Additional Instructions: Please follow up with her EXHA[employer] EMISSIONS INSPECTOR provider. Complete antibiotics as prescribed. Prescriptions: metroNIDAZOLE [Flagyl] 500 mg PO Q12HR #14 tab Forms: STI Treatment and Prevention, Work/School Release Form(ED), Accompanied Note
[2019-08-09 00:11] LABS: Bacteria,Urine 1+ /HPF (Negative); Bilirubin,Urine NEG (Negative); Blood,Urine NEG (Negative); Color,Urine Yellow (Yellow); Mucus,Urine 3+ /HPF; RBC,Urine < 1.0 /HPF (0.0-6.0)
[2019-08-09 01:59] VITALS: BP 152/102
== END 2019-08-09 01:05 | disposition home or self-care (01) ==
LOC: ED 18:35
DX: N76.0 Acute vaginitis (principal); R51 Headache; I10 Essential (primary) hypertension; K21.9 Gastro-esophageal reflux disease without esophagitis; G43.909 Migraine, unspecified, not intractable, without status migrainosus; J45.909 Unspecified asthma, uncomplicated
CPT/HCPCS: 36415; 80053; 81001; 85025; 87210; 87591; 96374; 96375; 99283; J1100; J1885; J2765

== ENCOUNTER 2020-02-12 14:05 | Outpatient (CLI) | payer MEDICAID ==
--- NOTE | 2020-02-12 16:08 | Mammography Report ---
LEFT DIGITAL DIAGNOSTIC MAMMOGRAM WITH CAD 02/12/2020 LEFT LIMITED BREAST ULTRASOUND INDICATION: LEFT BREAST PAIN/ PALPABLE SOFT TISSUE MASS TECHNIQUE: Digital left mammographic imaging was performed. Limited ultrasound was performed. This e xamination was interpreted with the benefit of Computer-Aided Detection (CAD) analysis. COMPARISON: 01/09/19. FINDINGS: Breast Density: There are scattered areas of fibroglandular density. MAMMOGRAPHIC FINDINGS: There is no evidence of dominant mass, suspicious calcifications or architectu ral distortion in the left breast. ULTRASOUND FINDINGS: Targeted ultrasound evaluation was performed of the area of interest. There is no evidence of a mass, posterior shadowing, distortion or other significant abnormality. IMPRESSION: Negative study. Further evaluation of any palpable abnormality should be based on clinica l findings. Follow up recommendation: Back to schedule. Please note that the patient is currently due for her rig ht breast mammogram. BI-RADS Category 1: Negative. A "normal" or negative report should not discourage follow up or biopsy of a clinically significant f inding. A written summary of these findings will be mailed to the patient. The patient will be entered into a mammography reporting system which will generate a reminder letter for the patient's next appointmen t at the appropriate interval. According to the [employer], yearly mammograms are recommended starting at age 40 and continuing as long as a woman is in good health. Breast MRI is recommended for women with an claudia roximately 20-25% or greater lifetime risk of breast cancer, including women with a strong family his tory of breast or ovarian cancer and women who have been treated for Hodgkin's disease. Signer Name: Lucho Upton MD Signed: 02/12/2020 4:04 PM Workstation Name: [employer]
== END 2020-02-12 14:06 | disposition home or self-care (01) ==
LOC: SPVWC 14:05
PROVIDERS: ATTEND Surgery
DX: N64.4 Mastodynia (principal)

== ENCOUNTER 2020-11-13 19:40 | Emergency (ER) | payer MEDICAID | END 2020-11-13 20:00 | disposition left against medical advice (07) | LOC: ED 19:40 | DX: R07.89 Other chest pain (principal); R51.9 Headache, unspecified; Z53.21 Procedure and treatment not carried out due to patient leaving prior to being seen by health care provider ==

== ENCOUNTER 2022-03-19 12:48 | Outpatient (CLI) | payer MEDICAID ==
--- NOTE | 2022-03-22 17:13 | Mammography Report ---
DIGITAL SCREENING MAMMOGRAM WITH CAD, 03/19/2022 CLINICAL INFORMATION / INDICATION: Routine screening mammography. TECHNIQUE: Digital bilateral 2D mammography was obtained in the craniocaudal and mediolateral obliqu e projections. This examination was interpreted with the benefit of Computer-Aided Detection analysis . COMPARISON: 01/09/2019 FINDINGS: Breast Density: There are scattered areas of fibroglandular density. No dominant mass, suspicious calcifications, or architectural distortion in either breast. There are possible enlarged left axillary lymph nodes seen on the MLO view only. IMPRESSION: 1. Possible enlarged left axillary lymph nodes. Recommend additional evaluation with left breast/axil kelly ultrasound for better evaluation. Follow up recommendation: Ultrasound BI-RADS Category 0: INCOMPLETE. Needs additional imaging evaluation and/or prior mammograms for raul lagos. A "normal" or negative report should not discourage follow up or biopsy of a clinically significant f inding. A written summary of these findings will be mailed to the patient. The patient will be entered into a mammography reporting system which will generate a reminder letter for the patient's next appointmen t at the appropriate interval. The [employer] recommends yearly mammograms starting at age 40 and continuing as l chris as a woman is in good health. Breast MRI is recommended for women with an approximate 20-25% or greater lifetime risk of breast cancer, including women with a strong family history of breast or ova odessa cancer or who have been treated for Hodgkin's disease. Signer Name: Janelle Elkins MD Signed: 03/22/2022 5:09 PM Workstation Name: [employer]
== END 2022-03-19 12:49 | disposition home or self-care (01) ==
LOC: MAMMO 12:48
PROVIDERS: ATTEND Internal Medicine
DX: Z12.31 Encounter for screening mammogram for malignant neoplasm of breast (principal)
CPT/HCPCS: 77067

== ENCOUNTER 2022-04-05 10:46 | Outpatient (CLI) | payer MEDICAID ==
--- NOTE | 2022-04-05 12:00 | Ultrasound Report ---
ULTRASOUND BREAST LEFT COMPLETE, 04/05/2022 CLINICAL INFORMATION / INDICATION: On patient's recent left screening mammogram, prominent left axill selene lymph nodes were identified.. TECHNIQUE: Complete sonographic evaluation of all 4 quadrants and retroareolar region was performed. COMPARISON: Recent mammogram 03/19/2022 FINDINGS: Sonographic evaluation of the entire left breast was performed. No abnormality is seen in the left br east parenchyma. Evaluation of the left axilla does demonstrate multiple normal appearing lymph nodes. However there i s one axillary lymph node with focal cortical thickening along the superior aspect. This is abnormal and further evaluation with ultrasound-guided biopsy is recommended. IMPRESSION: 1. Solitary abnormal lymph node in the left axilla with prominent focal cortical thickening. Suggest further evaluation with ultrasound-guided biopsy. 2. No abnormality within the left breast parenchyma. Follow up recommendation: Biopsy BI-RADS Category 4: SUSPICIOUS FOR MALIGNANCY. A normal or "negative" report should not preclude biopsy or follow-up of a clinically suspicious find ing. Signer Name: Brynn Bach MD Signed: 04/05/2022 11:56 AM Workstation Name: [email or web address]
== END 2022-04-05 10:47 | disposition home or self-care (01) ==
LOC: US 10:46
PROVIDERS: ATTEND Internal Medicine
DX: N63.21 Unspecified lump in the left breast, upper outer quadrant (principal)